=== PATIENT | male | born 1970 | race Caucasian/White ===

== ENCOUNTER 2022-02-09 17:03 | Inpatient (IN) | payer MEDICAID, SELFPAY ==
--- NOTE | ~2022-02-09 | XR_ITS ---
EXAMINATION: XR CHEST CLINICAL INFORMATION: Placement of hemodialysis catheter COMPARISON: January 26, 2015 TECHNIQUE: AP portable view of the chest was obtained. FINDINGS: There is no evidence of acute parenchymal disease, pneumothorax, or pleural effusion. Heart normal size. No evidence of pulmonary edema. A left-sided internal jugular central venous catheter is seen in place with its tip in the region of the junctions of the left innominate vein and superior vena cava. A left sided vascular stent is seen in place. Some calcified lymph nodes are seen about the right mediastinum consistent with old granulomatous disease. XR/XR chest 1V IMPRESSION: No acute disease. Hemodialysis catheter in place with tip at the junctions of the left innominate vein and superior vena cava. No pneumothorax.
--- NOTE | ~2022-02-09 | US_ITS ---
EXAMINATION: US RETROPERITONEAL LIMITED (RENAL ONLY) CLINICAL INFORMATION: Acute kidney injury. COMPARISON: CT abdomen pelvis October 04, 2014 and renal ultrasound April 15, 2014 TECHNIQUE: Grayscale and color Doppler imaging was obtained of the bilateral kidneys. Today's examination is limited secondary to overlying bowel gas and rib shadowing. FINDINGS: RIGHT KIDNEY: 9.3 x 5.0 x 6.0 cm (SAG x AP x TRV). The kidney is normal in size and contour but demonstrates diffusely increased echogenicity. Renal cortical thickness is normal. 2 small subcentimeter cysts noted within the right kidney. An 8mm nonobstructing mid pole calculus is also identified. No hydronephrosis. LEFT KIDNEY: 10.7 x 5.8 x 5.2 cm (SAG x AP x TRV). The kidney is normal in size and contour but demonstrates diffusely increased echogenicity. Renal cortical thickness is normal. No calculi or focal parenchymal lesions. No hydronephrosis. US/US renal BI IMPRESSION: -Both kidneys demonstrate diffusely increased echogenicity suggesting medical renal disease. -8 mm nonobstructing right renal calculus. No hydronephrosis.
--- NOTE | ~2022-02-09 | CT_ITS ---
EXAMINATION: CT HEAD WITHOUT CONTRAST CT CERVICAL SPINE WITHOUT CONTRAST CLINICAL INFORMATION: Syncope, head strike COMPARISON: None TECHNIQUE: A noncontrast CT of the head and a noncontrast CT of the cervical spine with sagittal and coronal reformats. This CT examination was performed using dose optimization techniques as appropriate, variously including the following: *Automated exposure control *Adjustment of mA and/or kV according to patient size (this includes techniques or standardized protocols for targeted exams where dose is matched to indication/reason for exam; i.e. extremities or head) *Use of iterative reconstruction technique DLP: 1170 FINDINGS: No intra-axial or extra-axial hemorrhage. No acute territorial infarct. Ventricles and sulci appear normal. Preservation of wall-white matter differentiation. No mass, mass effect, or midline shift. No fracture. Mild patchy opacification of the right maxillary sinus. The mastoid air cells and visualized paranasal sinuses are otherwise clear. Normal alignment of the cervical spine. No fracture. No prevertebral soft tissue swelling. Moderate-severe degenerative disc disease at C5-C6 and prominent degenerative change at the anterior atlantoaxial junction. Multiple calcified lymph nodes. CT/CT cervical spine wo con IMPRESSION: No acute intracranial abnormality. No cervical spine fracture or traumatic subluxation.
--- NOTE | ~2022-02-09 | IR_ITS ---
PROCEDURE: IR INSERTION OF TUNNEL CATHETER CLINICAL INFORMATION: Conversion of temporary dialysis catheter to a permacath. Acute kidney injury. COMPARISON: Chest x-ray 02/10/2022. TECHNIQUE: Following explaining conversion of left temporary dialysis catheter to a tunneled permacath procedure, benefits and risks, a written consent was obtained from the patient. Patient was placed supine on angiography table and the left neck and the chest wall site was cleaned in usual sterile manner with 2 chlorhexidine solution. Sterile drape was placed over the operating site. 1% lidocaine was injected left anterior chest wall approximately 1 gauze length away from the neck wall incision. 1% lidocaine with epinephrine was injected subcutaneously from the left anterior chest wall incision to the left jugular neck incision. The tunneler was then pulled through the left neck incision making sure the cuff of the catheter was inside the skin. At the neck, the sutures were removed and a thin guidewire was advanced through one of the lumens of the dialysis catheter into the IVC under fluoroscopic guidance. The catheter was then removed and a tract was dilated up to 14-Namibian size. A 14-Namibian dilator with sheath was inserted over the guidewire and the dilator and the guidewire was removed. The catheter was then inserted through the peel-away sheath into the SVC and a peel-away sheath was removed. A single image was obtained for documentation. Both ports of permacatheter were flushed with saline followed by heparin instillation. The permacatheter was held at the skin site with 3-0 nonabsorbing sutures. Sterile dressing applied postprocedure. Conscious sedation was administered during the exam. Sterile gloves, a sterile full body drape and hand hygiene. Also followed skin preparation with 2% chlorhexidine for cutaneous antisepsis, and sterile ultrasound preparation with sterile gel and probe cover when applicable. FINDINGS: Fluoroscopy-guided conversion of left temporary dialysis catheter to a tunneled permacatheter under fluoroscopy. There were no immediate complications. IR/IR cvc insert central tunnel IMPRESSION: Successful conversion of left temporary dialysis catheter to a tunneled 14-Namibian 23 cm long glide permacatheter. FLUOROSCOPY TIME: 0.3 minutes. DOSE AREA PRODUCT: 79 cGy/cm2. SEDATION TIME: 17 minutes.
--- NOTE | ~2022-02-09 | CT_ITS ---
EXAMINATION: CT HEAD WITHOUT CONTRAST CT CERVICAL SPINE WITHOUT CONTRAST CLINICAL INFORMATION: Syncope, head strike COMPARISON: None TECHNIQUE: A noncontrast CT of the head and a noncontrast CT of the cervical spine with sagittal and coronal reformats. This CT examination was performed using dose optimization techniques as appropriate, variously including the following: *Automated exposure control *Adjustment of mA and/or kV according to patient size (this includes techniques or standardized protocols for targeted exams where dose is matched to indication/reason for exam; i.e. extremities or head) *Use of iterative reconstruction technique DLP: 1170 FINDINGS: No intra-axial or extra-axial hemorrhage. No acute territorial infarct. Ventricles and sulci appear normal. Preservation of wall-white matter differentiation. No mass, mass effect, or midline shift. No fracture. Mild patchy opacification of the right maxillary sinus. The mastoid air cells and visualized paranasal sinuses are otherwise clear. Normal alignment of the cervical spine. No fracture. No prevertebral soft tissue swelling. Moderate-severe degenerative disc disease at C5-C6 and prominent degenerative change at the anterior atlantoaxial junction. Multiple calcified lymph nodes. CT/CT head/brain wo con IMPRESSION: No acute intracranial abnormality. No cervical spine fracture or traumatic subluxation.
--- NOTE | 2022-02-09 17:05 | ECG_ITS ---
Test Reason : SYNCOPE Blood Pressure : / mmHG Vent. Rate : 088 BPM Atrial Rate : 088 BPM P-R Int : 148 ms QRS Dur : 104 ms QT Int : 404 ms P-R-T Axes : 035 -01 039 degrees QTc Int : 488 ms Normal sinus rhythm Prolonged QT Abnormal ECG When compared with ECG of 26-JAN-2015 00:36, No significant change was found Referred By: Sharath Chahal Electronically Signed By:SYDNEY IRVIN MD
[2022-02-09 17:14] VITALS: BP 119/52; BP 122/58; PULSE 91; PULSE 93; RESP 18; TEMP 36.6; O2SAT 95; O2SAT 97; BMI 29.9
--- NOTE | 2022-02-09 17:21 | ED_ITS ---
HPI - Syncope General Chief Complaint: Syncope Stated Complaint: syncope Time Seen by Provider: 02/09/22 17:05 Source: patient Mode of arrival: EMS Limitations: no limitations History of Present Illness HPI narrative: This is a 51-year-old male history of CKD was on hemodialysis however no longer on it presenting to the emergency department for witnessed syncopal episode that occurred just prior to his arrival. According to patient he syncopized at his girlfriend's house he tells me he lost consciousness for 5-15 minutes he is on shore he is unsure if he hit his head however he tells me I do not think so. He tells me he is not on blood thinners. He reported to nursing staff earlier that he had a syncopal episode yesterday. He reports that he has not been feeling right. Denies any preceding symptoms to the syncopal episode he tells me this to suddenly happened. Denies head trauma. He does report that he has not been seeing his outpatient providers for a few years, he tells me he does having got into it. At this time he tells me he just feels weak, throughout his body. At this time denies fevers, chills, chest pain, shortness of breath, nausea, vomiting, headache, dizziness, recent sick contacts year old MD complaint: loss of consciousness and felt faint Related Data Allergies Allergy/AdvReac Type Severity Reaction Status Date / Time No Known Allergies Allergy Unverified 03/23/20 17:04 Review of Systems Review of Systems: Constitutional : No Weight loss, No Fever, No Chills, No Fatigue, No Malaise ENT/Mouth : No sore throat, No Rhinorrhea Eyes: No Eye Pain, No Swelling, No Redness Cardiovascular : No Chest Pain, No SOB, No Dyspnea on Exertion, No Orthopnea, No Edema, No Palpitations Respiratory : No Cough, No Sputum, No Wheezing Gastrointestinal : No Nausea, No Vomiting, No Diarrhea, No Constipation, No abdominal Pain, No Hematochezia, No Melena Genitourinary : No Dysuria, No Urinary Frequency, No Hematuria, Musculoskeletal : No joint pain, No Myalgias, No Joint Swelling Skin : No Skin Lesions, No rash Neuro : + Weakness, No Numbness, No Dizziness, No Headache Psych : No Anxiety/Panic, No Depression All other systems reviewed and are negative Yes all other systems are reviewed and are negative PMFSH Past Medical History Attestation statement: The following information was validated with the patient. Source: old records reviewed and nursing notes reviewed Social History Social History Advance Directives: No Advance Directives Information Provided: Yes Physical Exam Vital Signs: Vital Signs: Last Vital Signs Temp 97.8 F 02/09/22 17:14 Pulse 91 02/09/22 17:14 Resp 18 02/09/22 17:14 BP 122/58 L 02/09/22 17:14 Pulse Ox 97 02/09/22 17:14 O2 Del Method 02/09/22 17:14 BMI result Body Mass Index 29.9 VSS Appearance: Alert.? Oriented X3.? No acute distress.? Head: Normocephalic, atraumatic, no step-offs or deformities Eyes: Pupils equal, round and reactive to light.? ENT: Pharynx normal.? Neck: Normal inspection.? Neck supple.? CVS: Normal heart rate and rhythm.? Pulses normal.? Respiratory: No respiratory distress.? Breath sounds normal.? Abdomen: Soft and nontender.? Skin: Skin warm and dry.? Normal skin color.? Normal skin turgor.? Extremities: No lower extremity edema.? No calf ttp. 5/5 strength to bilateral upper and lower extremities Neuro: Oriented X 3.? No motor deficit.? No sensory deficit. CN 2-12 intact Course Reevaluation(s) Reevaluation #1: Patient's CBC significant for a normocytic anemia however patient's baseline hemoglobin around 14, hematocrit around 43 today his hemoglobin is 7.4, hematocrit 21.3, significant change therefore will obtain an OBS to rule out lower GI bleed, however likley secondary to CKD and poor EPO production, will obtain a type and screen as patient is symptomatic had a syncopal episode and is found to be anemic will plan on blood transfusion. Patient's sodium 130 will hydrate him with normal saline, potassium of 3.0 he will receive oral potassium. Patient's chloride is also low. He has an anion gap of 36. Will obtain a VBG at this time. BUN pending however creatinine 17.89 patient does tell me that he used to be on dialysis however he stop seeing all his providers and he stop taking care of himself. At this time patient tells me he still makes urine will give fluids and it plan to reach out to Nephrology for further guidance. Time: 18:23 Reevaluation #2: OBS done and pending analysis. Time: 18:29 Reevaluation #3: Call out to Nephrology, pending call back. Time: 18:40 Additional Reevaluation(s): 1852 UA likley contaminated. Spoke to nephro Dr. Lovett, patient will need dialysis on Friday. Nephro will follow tomorrow. Plan is to discuss this case w/ hospitalist for admission 1928 Patient will be admitted to hospitalist team MDM - Syncope MDM Narrative Medical decision making narrative: 1714 51 yo m presents w/ whitnessed syncopal episode. Patient reports he isnt being followed by out patient providers at this time, he reports he has not been taking care of himself. He also reports a syncopal episode yesterday. Physical examination benign. Will obtain head CT as patient is poor historian will rule out ICH. Will also rule out electrolyte abnormalities with EKG and continuous cardiac monitoring. Basic labs will be obtained to rule out electrolyte abnormalities. And urine will be obtained to rule out infection. Patient has good deep tendon reflexes to upper and lower extremities therefore low suspicion for Guillain-Garrett. Medical Records Attestation: I reviewed the patient's medical records. Lab Data Attestation: I reviewed the patient's lab results. Result diagrams: 02/09/22 17:40 02/09/22 17:40 Labs: Lab Results 02/09/22 02/09/22 02/09/22 Range/Units 17:40 17:40 17:40 WBC 10.9 H (4.8-10.8) X10*3/uL RBC 2.55 L (4.60-5.80) X10*6/uL Hgb 7.4 L (14.0-18.0) g/dl Hct 21.3 L (42.0-52.0) % MCV 83.5 (80.0-98.0) fL MCH 29.0 (27.0-33.0) pg MCHC 34.7 (31.0-36.0) g/dl RDW 13.1 (11.0-16.0) % Plt Count 264 (160-400) X10*3/uL MPV 10.4 (9.4-12.4) fL Immature Gran % (Auto) 0.6 H (0.0-0.4) % Neut % (Auto) 89.1 H (45-73) % Lymph % (Auto) 3.9 L (20-40) % [place] % (Auto) 4.6 (2-11) % Eos % (Auto) 1.3 (0-4) % Baso % (Auto) 0.5 (0-2) % Lymph # (Auto) 0.4 L (1.2-4.9) X10*3/uL [place] # (Auto) 0.5 (0.1-1.2) X10*3/uL Eos # (Auto) 0.1 (0.0-0.4) X10*3/uL Baso # (Auto) 0.1 (0.0-0.2) X10*3/uL Abs Immat Gran (auto) 0.07 H (0.00-0.03) X10*3/uL Absolute Neuts (auto) 9.7 H (2.0-8.3) x10*3/uL Absolute Nucleated RBC 0.000 (0.0-0.012) X10*3/uL Nucleated RBC % (auto) 0.0 (0.0-0.2) /100WBC Sodium 130 L (135-145) mmol/L Potassium 3.0 L (3.3-5.1) mmol/L Chloride 83 L (96-108) mmol/L Carbon Dioxide 14 L (22-29) mmol/L Anion Gap 36 H (12-20) BUN 210 H (9-16) mg/dL Creatinine 17.89 H* (0.5-1.4) mg/dL Estim Creat Clear Calc 5.7 Estimated GFR 3 Random Glucose 170 H (60-115) mg/dL Calcium 8.0 L (8.4-10.2) mg/dL Magnesium 1.7 (1.6-2.6) mg/dL Total Bilirubin 0.7 (0.0-1.0) mg/dL AST 13 (5-37) U/L ALT 9 (0-40) U/L Alkaline Phosphatase 72 (39-117) U/L Total Creatine Kinase 134 (38-174) U/L Troponin I High Sens 11.9 (<3.5-35.0) ng/L Total Protein 8.0 (6.5-8.0) g/dL Albumin 3.8 (3.5-5.0) g/dL Urine Color Urine Appearance Urine pH (5.0-8.0) Ur Specific [place] (1.005-1.025) Urine Protein (NEG-TRACE) MG/DL Urine Glucose (UA) (NEG) MG/DL Urine Ketones (NEG) MG/DL Urine Blood (NEG) Urine Nitrite (NEG) Ur Leukocyte Esterase (NEG) Urine RBC (0) /HPF Urine WBC (0-4) /HPF Urine WBC Clumps Ur Squamous Epith Cells /LPF Urine Bacteria /LPF Stool Occult Blood (NEGATIVE) Urine Opiates Screen (Not Detect) Urine Fentanyl Screen (Not Detect) Ur Barbiturates Screen (Not Detect) Ur Phencyclidine Scrn (Not Detect) Ur Amphetamines Screen (Not Detect) U Benzodiazepines Scrn (Not Detect) Urine Cocaine Screen (Not Detect) U Marijuana (THC) Screen (Not Detect) COVID-19 (BALJEET) (Negative) COVID-19 Clin Com 02/09/22 02/09/22 02/09/22 Range/Units 17:40 17:55 17:55 WBC (4.8-10.8) X10*3/uL RBC (4.60-5.80) X10*6/uL Hgb (14.0-18.0) g/dl Hct (42.0-52.0) % MCV (80.0-98.0) fL MCH (27.0-33.0) pg MCHC (31.0-36.0) g/dl RDW (11.0-16.0) % Plt Count (160-400) X10*3/uL MPV (9.4-12.4) fL Immature Gran % (Auto) (0.0-0.4) % Neut % (Auto) (45-73) % Lymph % (Auto) (20-40) % [place] % (Auto) (2-11) % Eos % (Auto) (0-4) % Baso % (Auto) (0-2) % Lymph # (Auto) (1.2-4.9) X10*3/uL [place] # (Auto) (0.1-1.2) X10*3/uL Eos # (Auto) (0.0-0.4) X10*3/uL Baso # (Auto) (0.0-0.2) X10*3/uL Abs Immat Gran (auto) (0.00-0.03) X10*3/uL Absolute Neuts (auto) (2.0-8.3) x10*3/uL Absolute Nucleated RBC (0.0-0.012) X10*3/uL Nucleated RBC % (auto) (0.0-0.2) /100WBC Sodium (135-145) mmol/L Potassium (3.3-5.1) mmol/L Chloride (96-108) mmol/L Carbon Dioxide (22-29) mmol/L Anion Gap (12-20) BUN (9-16) mg/dL Creatinine (0.5-1.4) mg/dL Estim Creat Clear Calc Estimated GFR Random Glucose (60-115) mg/dL Calcium (8.4-10.2) mg/dL Magnesium (1.6-2.6) mg/dL Total Bilirubin (0.0-1.0) mg/dL AST (5-37) U/L ALT (0-40) U/L Alkaline Phosphatase (39-117) U/L Total Creatine Kinase (38-174) U/L Troponin I High Sens (<3.5-35.0) ng/L Total Protein (6.5-8.0) g/dL Albumin (3.5-5.0) g/dL Urine Color YELLOW Urine Appearance CLEAR Urine pH 5.5 (5.0-8.0) Ur Specific [place] 1.020 (1.005-1.025) Urine Protein 1+ H (NEG-TRACE) MG/DL Urine Glucose (UA) 100 H (NEG) MG/DL Urine Ketones NEG (NEG) MG/DL Urine Blood 2+ H (NEG) Urine Nitrite NEG (NEG) Ur Leukocyte Esterase TRACE H (NEG) Urine RBC 1-4 (0) /HPF Urine WBC 5-9 H (0-4) /HPF Urine WBC Clumps NOTED Ur Squamous Epith Cells 2+ /LPF Urine Bacteria TRACE /LPF Stool Occult Blood (NEGATIVE) Urine Opiates Screen POSITIVE H (Not Detect) Urine Fentanyl Screen POSITIVE H (Not Detect) Ur Barbiturates Screen Not Detected (Not Detect) Ur Phencyclidine Scrn Not Detected (Not Detect) Ur Amphetamines Screen Not Detected (Not Detect) U Benzodiazepines Scrn Not Detected (Not Detect) Urine Cocaine Screen Not Detected (Not Detect) U Marijuana (THC) Screen Not Detected (Not Detect) COVID-19 (BALJEET) Negative (Negative) COVID-19 Clin Com See Note 02/09/22 Range/Units 18:42 WBC (4.8-10.8) X10*3/uL RBC (4.60-5.80) X10*6/uL Hgb (14.0-18.0) g/dl Hct (42.0-52.0) % MCV (80.0-98.0) fL MCH (27.0-33.0) pg MCHC (31.0-36.0) g/dl RDW (11.0-16.0) % Plt Count (160-400) X10*3/uL MPV (9.4-12.4) fL Immature Gran % (Auto) (0.0-0.4) % Neut % (Auto) (45-73) % Lymph % (Auto) (20-40) % [place] % (Auto) (2-11) % Eos % (Auto) (0-4) % Baso % (Auto) (0-2) % Lymph # (Auto) (1.2-4.9) X10*3/uL [place] # (Auto) (0.1-1.2) X10*3/uL Eos # (Auto) (0.0-0.4) X10*3/uL Baso # (Auto) (0.0-0.2) X10*3/uL Abs Immat Gran (auto) (0.00-0.03) X10*3/uL Absolute Neuts (auto) (2.0-8.3) x10*3/uL Absolute Nucleated RBC (0.0-0.012) X10*3/uL Nucleated RBC % (auto) (0.0-0.2) /100WBC Sodium (135-145) mmol/L Potassium (3.3-5.1) mmol/L Chloride (96-108) mmol/L Carbon Dioxide (22-29) mmol/L Anion Gap (12-20) BUN (9-16) mg/dL Creatinine (0.5-1.4) mg/dL Estim Creat Clear Calc Estimated GFR Random Glucose (60-115) mg/dL Calcium (8.4-10.2) mg/dL Magnesium (1.6-2.6) mg/dL Total Bilirubin (0.0-1.0) mg/dL AST (5-37) U/L ALT (0-40) U/L Alkaline Phosphatase (39-117) U/L Total Creatine Kinase (38-174) U/L Troponin I High Sens (<3.5-35.0) ng/L Total Protein (6.5-8.0) g/dL Albumin (3.5-5.0) g/dL Urine Color Urine Appearance Urine pH (5.0-8.0) Ur Specific [place] (1.005-1.025) Urine Protein (NEG-TRACE) MG/DL Urine Glucose (UA) (NEG) MG/DL Urine Ketones (NEG) MG/DL Urine Blood (NEG) Urine Nitrite (NEG) Ur Leukocyte Esterase (NEG) Urine RBC (0) /HPF Urine WBC (0-4) /HPF Urine WBC Clumps Ur Squamous Epith Cells /LPF Urine Bacteria /LPF Stool Occult Blood NEGATIVE (NEGATIVE) Urine Opiates Screen (Not Detect) Urine Fentanyl Screen (Not Detect) Ur Barbiturates Screen (Not Detect) Ur Phencyclidine Scrn (Not Detect) Ur Amphetamines Screen (Not Detect) U Benzodiazepines Scrn (Not Detect) Urine Cocaine Screen (Not Detect) U Marijuana (THC) Screen (Not Detect) COVID-19 (BALJEET) (Negative) COVID-19 Clin Com ECG Data Attestation: I personally reviewed and interpreted this ECG as follows: ECG interpretation date: 02/09/22 ECG interpretation time: 18:23 Prior ECG tracings: available for review Interpretation: EKG with a ventricular rate of 88, IA normal, QRS normal, QT prolonged EKG with normal sinus rhythm no ST elevations or inversions concerning for ischemia. No significant changes when compared to EKG from January 2015 Critical Care Time Critical Care Time Critical Care Time: No Discharge Plan Discharge Clinical Impression: [id number] kidney injury, Syncope, Acute hypokalemia Patient Disposition: Admitted As Inpatient
[2022-02-09 17:47] LABS: MANUAL DIFF FLAG NO
[2022-02-09 17:52] LABS: Basophils Absolute Auto 0.1 X10*3/uL (0.0-0.2); Basophils Percent Auto 0.5 % (0-2); Eosinophils Absolute Auto 0.1 X10*3/uL (0.0-0.4); Eosinophils Percent Auto 1.3 % (0-4); Hematocrit 21.3 % (42.0-52.0); Hemoglobin 7.4 g/dl (14.0-18.0); Imm Gran Abs Auto 0.07 X10*3/uL (0.00-0.03); Imm Gran Pct Auto 0.6 % (0.0-0.4); Lymphocytes Absolute Auto 0.4 X10*3/uL (1.2-4.9); Lymphocytes Percent Auto 3.9 % (20-40); Mean Corpuscular HGB Conc 34.7 g/dl (31.0-36.0); Mean Corpuscular Volume 83.5 fL (80.0-98.0); Mean Platelet Volume 10.4 fL (9.4-12.4); Monocytes Absolute Auto 0.5 X10*3/uL (0.1-1.2); Monocytes Percent Auto 4.6 % (2-11); Neutrophils Absolute Auto 9.7 x10*3/uL (2.0-8.3); Neutrophils Percent Auto 89.1 % (45-73); Platelet Count 264 X10*3/uL (160-400); Red Blood Count 2.55 X10*6/uL (4.60-5.80); Red Cell Distribution Width 13.1 % (11.0-16.0); White Blood Count 10.9 X10*3/uL (4.8-10.8)
[2022-02-09 18:01] LABS: Appearance Urine CLEAR; Color Urine YELLOW; Glucose Urine UA 100 MG/DL (NEG); Leukocyte Esterase Urine TRACE (NEG); Nitrite Urine NEG (NEG); PH 5.5 (5.0-8.0); UACC Culture Trigger NO; Urine Blood 2+ (NEG); Urine Ketones NEG (NEG); Urine Protein 1+ MG/DL (NEG-TRACE)
[2022-02-09 18:02] LABS: COVID-19 Test Negative (Negative)
[2022-02-09 18:12] LABS: Amphetamine Screen Urine Not Detected (Not Detect); Barbiturates, Urine Not Detected (Not Detect); Benzodiazepines Screen Urine Not Detected (Not Detect); Cannabinoid Screen Urine Not Detected (Not Detect); Cocaine Screen Urine Not Detected (Not Detect); Fentanyl, urine POSITIVE (Not Detect); Opiate Screen Urine POSITIVE (Not Detect); Phencyclidine Screen Urine Not Detected (Not Detect)
[2022-02-09 18:13] LABS: Troponin-I High Sensitivity 11.9 ng/L (<3.5-35.0)
[2022-02-09 18:14] LABS: Alanine Aminotransferase 9 U/L (0-40); Albumin Level 3.8 g/dL (3.5-5.0); Alkaline Phosphatase 72 U/L (39-117); Anion Gap 36 (12-20); Aspartate Amino Transferase 13 U/L (5-37); Bilirubin Total 0.7 mg/dL (0.0-1.0); Carbon Dioxide 14 mmol/L (22-29); Chloride 83 mmol/L (96-108); Creatinine Clr Calc Pharmacy 5.7; Estimated Glomerular Filt Rate 3; Glucose Random 170 mg/dL (60-115); Magnesium 1.7 mg/dL (1.6-2.6); Sodium 130 mmol/L (135-145)
[2022-02-09 18:18] LABS: Bacteria Urine TRACE /LPF; Squamous Epithelial Cell Urine 2+ /LPF; UACC CULT YES; WBC Clumps Urine NOTED
[2022-02-09 18:32] LABS: Blood Urea Nitrogen 210 mg/dL (9-16)
[2022-02-09] MEDS: Potassium Chloride Packet 20 MEQ PACKET 40 MEQ PO (18:47)
[2022-02-09 18:49] LABS: OBS Int Ctl Valid YES; OBS1 NEGATIVE (NEGATIVE)
[2022-02-09 19:04] VITALS: BP 120/72; PULSE 108
[2022-02-09 19:30] VITALS: PULSE 80; RESP 12; O2SAT 98; O2SAT 99
--- NOTE | 2022-02-09 19:32 | P.HPHOSP_ITS ---
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 Patient reports that over the past few days he has been having intermittent episodes of syncope, denies any prodrome, denies any seizure-like activity, denies any chest pain palpitations. Patient denies any fever chills cough. Denies any recent travel or sick contacts. Review of all other systems is negative except mentioned above ER course: Per ER team patient's exam was nonfocal, CT head, CT C-spine showed no acute findings, EKG was nonischemic, troponin was negative. All labs noted to have elevated creatinine to 17 compared to baseline of 4; serum bicarb of 14; discussed with Dr. Lovett from Nephrology-no urgent dialysis recommended; plan for dialysis on Friday. Also noted to have drop in hemoglobin from 14-7.4; presumed to be anemia of chronic disease. Stool guaiac was negative. Admitted to the hospital for further management PMFSH Pertinent family history: Father: Kidney failure, diabetes, hypertension, heart disease, CVA Mother: Rheumatoid arthritis, hypertension, heart disease Parents Social History Patient Tobacco Use Status: Current everyday Tobacco user Use of substances other than those prescribed or required for medical reasons: Yes Substance Use Type: Heroin Advance Directives: No Advance Directives Information Provided: Yes Meds Allergies Allergy/AdvReac Type Severity Reaction Status Date / Time No Known Allergies Allergy Unverified 03/23/20 17:04 Active Medications: Current Medications Sodium Chloride (Ns) 1,000 mls @ 999 mls/hr IV .Q1H1M NORMA Stop: 02/09/22 20:00 Physical Exam Vital Signs and Narrative: Vital Signs: Last Vital Signs Temp 97.8 F 02/09/22 17:14 Pulse 91 02/09/22 17:14 Resp 18 02/09/22 17:14 BP 122/58 L 02/09/22 17:14 Pulse Ox 97 02/09/22 17:14 O2 Del Method 02/09/22 17:14 BMI result Body Mass Index 29.9 Gen: Appears be in no acute distress HEENT: NCAT, Moist mucosa. Pulmonary: Vesicular breath sounds, fair air entry CVS: Normal S1-S2 Abdomen: BS+, Soft, Nontender Extremities: Warm well perfused Neuro: Alert and awake. Results Labs CBC and Chem 7: 02/09/22 17:40 02/09/22 17:40 Labs: Laboratory Results - last 24 hr 02/09/22 02/09/22 02/09/22 17:40 17:40 17:40 MCV 83.5 MCH 29.0 MCHC 34.7 RDW 13.1 Plt Count 264 MPV 10.4 Immature Gran % (Auto) 0.6 H Neut % (Auto) 89.1 H Lymph % (Auto) 3.9 L [place] % (Auto) 4.6 Eos % (Auto) 1.3 Baso % (Auto) 0.5 Lymph # (Auto) 0.4 L [place] # (Auto) 0.5 Eos # (Auto) 0.1 Baso # (Auto) 0.1 Abs Immat Gran (auto) 0.07 H Absolute Neuts (auto) 9.7 H Absolute Nucleated RBC 0.000 Nucleated RBC % (auto) 0.0 Anion Gap 36 H Estim Creat Clear Calc 5.7 Estimated GFR 3 Random Glucose 170 H Calcium 8.0 L Magnesium 1.7 Total Bilirubin 0.7 AST 13 ALT 9 Alkaline Phosphatase 72 Total Creatine Kinase 134 Total Protein 8.0 Albumin 3.8 Urine Color Urine Appearance Urine pH Ur Specific [place] Urine Protein Urine Glucose (UA) Urine Ketones Urine Blood Urine Nitrite Ur Leukocyte Esterase Urine RBC Urine WBC Urine WBC Clumps Ur Squamous Epith Cells Urine Bacteria Stool Occult Blood Urine Opiates Screen Urine Fentanyl Screen Ur Barbiturates Screen Ur Phencyclidine Scrn Ur Amphetamines Screen U Benzodiazepines Scrn Urine Cocaine Screen U Marijuana (THC) Screen COVID-19 (BALJEET) Negative COVID-19 Clin Com See Note 02/09/22 02/09/22 02/09/22 17:55 17:55 18:42 MCV MCH MCHC RDW Plt Count MPV Immature Gran % (Auto) Neut % (Auto) Lymph % (Auto) [place] % (Auto) Eos % (Auto) Baso % (Auto) Lymph # (Auto) [place] # (Auto) Eos # (Auto) Baso # (Auto) Abs Immat Gran (auto) Absolute Neuts (auto) Absolute Nucleated RBC Nucleated RBC % (auto) Anion Gap Estim Creat Clear Calc Estimated GFR Random Glucose Calcium Magnesium Total Bilirubin AST ALT Alkaline Phosphatase Total Creatine Kinase Total Protein Albumin Urine Color YELLOW Urine Appearance CLEAR Urine pH 5.5 Ur Specific [place] 1.020 Urine Protein 1+ H Urine Glucose (UA) 100 H Urine Ketones NEG Urine Blood 2+ H Urine Nitrite NEG Ur Leukocyte Esterase TRACE H Urine RBC 1-4 Urine WBC 5-9 H Urine WBC Clumps NOTED Ur Squamous Epith Cells 2+ Urine Bacteria TRACE Stool Occult Blood NEGATIVE Urine Opiates Screen POSITIVE H Urine Fentanyl Screen POSITIVE H Ur Barbiturates Screen Not Detected Ur Phencyclidine Scrn Not Detected Ur Amphetamines Screen Not Detected U Benzodiazepines Scrn Not Detected Urine Cocaine Screen Not Detected U Marijuana (THC) Screen Not Detected COVID-19 (BALJEET) COVID-19 Clin Com Imaging Radiologist's Impressions: Impressions Cervical Spine CT 02/09/22 18:33 IMPRESSION: No acute intracranial abnormality. No cervical spine fracture or traumatic subluxation. Head CT 02/09/22 18:33 IMPRESSION: No acute intracranial abnormality. No cervical spine fracture or traumatic subluxation. 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 Noted to have following conditions Syncope: Exam nonfocal CT head, CT C-spine showed no acute findings EKG showed no ischemia, no evidence of bradycardia Orthostatic vitals Telemetry Initial troponin negative-repeat troponin pending Echocardiogram PT/OT eventually LYNDSAY on CKD: Patient baseline creatinine around 4.0 from 2 years ago. No recent values. Creatinine on presentation is 17. Avoid nephrotoxins Patient's serum bicarb noted to be 14-will keep the patient on sodium bicarb tablets Nephrology was notified-no urgent dialysis recommended, planned for hemodialysis possibly on Friday. Gentle IV fluids Strict I's and O's Renal ultrasound Bladder scan High anion gap metabolic acidosis: Lactate levels pending. Ketones negative. Likely in setting of LYNDSAY. Patient on IV fluids. Hypokalemia: repleted. Diabetes: Will obtain hemoglobin A1c. Insulin sliding scale. Hypertension: Patient blood pressure currently on the normal side. Will continue to monitor. History of sarcoidosis: Patient used to be on prednisone 20 mg. Currently medication noncompliant. DVT prophylaxis: Subcu heparin Code status: Full code Quality Stroke Does the patient have a stroke diagnosis?: No VTE Prior VTE?: No VTE Risk Level:: Medical - moderate - high VTE Device Contraindication: Treatment Not Indicated VTE Drug Contraindication: N/A - Med Ordered
--- NOTE | 2022-02-09 19:34 | PC.NURSE ---
IV attempted by 2 RNs. Pt is a hard stick, will attempt with the vein finder.
[2022-02-09] MEDS: 0.9 % Sodium Chloride 1,000 ML 999 ML IV ×2 (20:01→20:50)
[2022-02-09 20:44] LABS: Lactic Acid 0.5 mmol/L (0.5-2.0)
[2022-02-09 20:52] LABS: Anion Gap 34 (12-20); Calcium 8.2 mg/dL (8.4-10.2); Carbon Dioxide 16 mmol/L (22-29); Chloride 84 mmol/L (96-108); Creatinine Clr Calc Pharmacy 5.7; Estimated Glomerular Filt Rate 3; Glucose Random 123 mg/dL (60-115); Potassium 3.2 mmol/L (3.3-5.1); Sodium 131 mmol/L (135-145)
[2022-02-09 21:06] LABS: Blood Urea Nitrogen 208 mg/dL (9-16)
[2022-02-09] MEDS: Heparin Sodium,Porcine 5,000 UNIT/ML VIAL 5000 UNIT SUBCUT (21:22)
[2022-02-09] MEDS: Sodium Bicarbonate 650 MG TABLET PO (21:22)
[2022-02-09 21:27] VITALS: BP 134/82; PULSE 83; RESP 12; O2SAT 97
[2022-02-09 21:34] LABS: Appearance Urine HAZY; Color Urine STRAW; Glucose Urine UA 100 MG/DL (NEG); Leukocyte Esterase Urine 1+ (NEG); Nitrite Urine POS (NEG); Specific Gravity - Urine 1.015 (1.005-1.025); UACC Culture Trigger YES; Urine Blood 3+ (NEG); Urine Ketones NEG (NEG); Urine Protein 1+ MG/DL (NEG-TRACE)
[2022-02-09 21:39] LABS: Bacteria Urine TRACE /LPF; Renal Epithelial Cells Urine 3+ /LPF; Squamous Epithelial Cell Urine 2+ /LPF; WBC Clumps Urine NOTED
[2022-02-09 21:52] VITALS: PULSE 96
[2022-02-10] VITALS (13 sets, daily range): BP systolic 85–153; BP diastolic 42–77; PULSE 81–129; RESP 12–20; TEMP 36.2–37.1; O2SAT 97–100
[2022-02-10] MEDS: Heparin Sodium,Porcine 5,000 UNIT/ML VIAL 5000 UNIT SUBCUT ×3 (04:04→22:06)
[2022-02-10] MEDS: Sodium Chloride 0.45 % 1,000 ML 100 ML IVCONT (06:42)
[2022-02-10 07:09] LABS: Estimated Average Glucose 111 mg/dL; Hemoglobin A1c % 5.5 %
[2022-02-10 07:24] LABS: Mean Corpuscular Hemoglobin 29.4 pg (27.0-33.0); Mean Corpuscular Volume 83.8 fL (80.0-98.0); Mean Platelet Volume 11.1 fL (9.4-12.4); Platelet Count 266 X10*3/uL (160-400); Red Blood Count 2.35 X10*6/uL (4.60-5.80); Red Cell Distribution Width 13.1 % (11.0-16.0)
[2022-02-10 07:27] LABS: Hemoglobin 6.9 g/dl (14.0-18.0)
[2022-02-10 07:28] LABS: Hematocrit 19.7 % (42.0-52.0)
--- NOTE | 2022-02-10 07:36 | PHA.MEDREC ---
PATIENT HAS NOT BEEN TAKING ANY MEDICATIONS, NO CLAIM HISTORY FOUND FOR PAST YEAR Pharmacy Consult ? Medication Reconciliation Pharmacy has completed the medication reconciliation.
[2022-02-10 07:54] LABS: Anion Gap 33 (12-20); Calcium 8.3 mg/dL (8.4-10.2); Carbon Dioxide 15 mmol/L (22-29); Chloride 86 mmol/L (96-108); Creatinine Clr Calc Pharmacy 5.8; Estimated Glomerular Filt Rate 3; Glucose Random 114 mg/dL (60-115); Potassium 3.4 mmol/L (3.3-5.1); Sodium 131 mmol/L (135-145)
[2022-02-10] MEDS: Sodium Bicarbonate 8.4% 150 MEQ in Dextrose 5 % 850 ML 100 MEQ IV (08:11)
[2022-02-10 08:19] LABS: Blood Urea Nitrogen 217 mg/dL (9-16)
--- NOTE | 2022-02-10 10:45 | P.PNIM_ITS ---
Subjective Subjective Date of Service: 02/10/22 Interval History: cc: weakness interval history: improved Respiratory Respiratory: Reports no additional respiratory complaints Gastrointestinal Gastrointestinal: Reports no additional gastrointestinal complaints Physical Exam Vital Signs: Vital Signs: Last Vital Signs Temp 97.8 F 02/09/22 17:14 Pulse 90 02/10/22 05:20 Resp 16 02/10/22 05:20 BP 98/60 02/10/22 05:23 Pulse Ox 98 02/10/22 05:20 O2 Del Method 02/10/22 05:20 BMI result Body Mass Index 29.9 Appearance: Alert.? Oriented X3.? No acute distress.? Head: Normocephalic, atraumatic, no step-offs or deformities Eyes: Pupils equal, round and reactive to light.? ENT: Pharynx normal.? Neck: Normal inspection.? Neck supple.? CVS: Normal heart rate and rhythm.? Pulses normal.? Respiratory: No respiratory distress.? Breath sounds normal.? Abdomen: Soft and nontender.? Skin: Skin warm and dry.? Normal skin color.? Normal skin turgor.? Extremities: No lower extremity edema.? No calf ttp. 5/5 strength to bilateral upper and lower extremities Neuro: Oriented X 3.? No motor deficit.? No sensory deficit. CN 2-12 intact Objective Data Active Medications Acetaminophen (Acetaminophen 325 Mg Tablet) 650 mg PO Q6H PRN PRN Reason: Pain, Mild (Pain Scale 1-3) Dextrose (Dextrose 50 % 25 Gm/50 Ml Syringe) 25 gm IVPUSH Q15M PRN; Protocol PRN Reason: per Hypoglycemia Standing Ord. Glucose (Glucose Gel 15 Gm Gel..Gram.) 15 gm PO Q15M PRN; Protocol PRN Reason: per Hypoglycemia Standing Ord. Heparin Sodium (Porcine) (Heparin Sodium,Porcine 5,000 Unit/Ml Vial) 5,000 unit SUBCUT Q8H [facility] Last Admin: 02/10/22 04:04 Dose: 5,000 unit Documented By: VIDHI Hydromorphone HCl (Hydromorphone Hcl 0.5 Mg/0.5 Ml Syringe) 0.5 mg IVPUSH Q4H PRN; Protocol PRN Reason: Pain, Severe (Pain Scale 7-10) Sodium Bicarbonate 150 meq/ (Dextrose) 1,000 mls @ 100 mls/hr IV .Q10H [facility] Last Admin: 02/10/22 08:11 Dose: 100 mls/hr Documented By: ORTIZ Insulin Human Lispro (Insulin Lispro 100 Unit/Ml 3 Ml Vial) 0 unit SUBCUT QIDACHS [facility]; Protocol Last Admin: 02/10/22 08:12 Dose: Not Given Documented By: ORTIZ Non-Admin Reason: No Insulin Coverage Senna (Sennosides 8.6 Mg Tablet) 17.2 mg PO BEDTIME PRN PRN Reason: Constipation Sodium Chloride (0.9 % Sodium Chloride Flush 3 Ml Syringe) 3 ml IVFLUSH QSHIFT [facility] Last Admin: 02/10/22 08:12 Dose: Not Given Documented By: ORTIZ Non-Admin Reason: IV Running Labs CBC & Chem 7: 02/10/22 06:42 02/10/22 06:42 Labs: Laboratory Results - last 24 hr 02/09/22 02/09/22 02/09/22 17:40 17:40 17:40 MCV 83.5 MCH 29.0 MCHC 34.7 RDW 13.1 Plt Count 264 MPV 10.4 Immature Gran % (Auto) 0.6 H Neut % (Auto) 89.1 H Lymph % (Auto) 3.9 L [place] % (Auto) 4.6 Eos % (Auto) 1.3 Baso % (Auto) 0.5 Lymph # (Auto) 0.4 L [place] # (Auto) 0.5 Eos # (Auto) 0.1 Baso # (Auto) 0.1 Abs Immat Gran (auto) 0.07 H Absolute Neuts (auto) 9.7 H Absolute Nucleated RBC 0.000 Nucleated RBC % (auto) 0.0 Anion Gap 36 H Estim Creat Clear Calc 5.7 Estimated GFR 3 Random Glucose 170 H Estimat Average Glucose Hemoglobin A1c % Lactic Acid Calcium 8.0 L Magnesium 1.7 Total Bilirubin 0.7 AST 13 ALT 9 Alkaline Phosphatase 72 Total Creatine Kinase 134 Total Protein 8.0 Albumin 3.8 Urine Color Urine Appearance Urine pH Ur Specific [place] Urine Protein Urine Glucose (UA) Urine Ketones Urine Blood Urine Nitrite Ur Leukocyte Esterase Urine RBC Urine WBC Urine WBC Clumps Ur Squamous Epith Cells Ur Renal Epithelial Cell Urine Bacteria Stool Occult Blood Urine Opiates Screen Urine Fentanyl Screen Ur Barbiturates Screen Ur Phencyclidine Scrn Ur Amphetamines Screen U Benzodiazepines Scrn Urine Cocaine Screen U Marijuana (THC) Screen COVID-19 (BALJEET) Negative COVID-19 Clin Com See Note Blood Type Antibody Screen Crossmatch 02/09/22 02/09/22 02/09/22 17:55 17:55 18:42 MCV MCH MCHC RDW Plt Count MPV Immature Gran % (Auto) Neut % (Auto) Lymph % (Auto) [place] % (Auto) Eos % (Auto) Baso % (Auto) Lymph # (Auto) [place] # (Auto) Eos # (Auto) Baso # (Auto) Abs Immat Gran (auto) Absolute Neuts (auto) Absolute Nucleated RBC Nucleated RBC % (auto) Anion Gap Estim Creat Clear Calc Estimated GFR Random Glucose Estimat Average Glucose Hemoglobin A1c % Lactic Acid Calcium Magnesium Total Bilirubin AST ALT Alkaline Phosphatase Total Creatine Kinase Total Protein Albumin Urine Color YELLOW Urine Appearance CLEAR Urine pH 5.5 Ur Specific [place] 1.020 Urine Protein 1+ H Urine Glucose (UA) 100 H Urine Ketones NEG Urine Blood 2+ H Urine Nitrite NEG Ur Leukocyte Esterase TRACE H Urine RBC 1-4 Urine WBC 5-9 H Urine WBC Clumps NOTED Ur Squamous Epith Cells 2+ Ur Renal Epithelial Cell Urine Bacteria TRACE Stool Occult Blood NEGATIVE Urine Opiates Screen POSITIVE H Urine Fentanyl Screen POSITIVE H Ur Barbiturates Screen Not Detected Ur Phencyclidine Scrn Not Detected Ur Amphetamines Screen Not Detected U Benzodiazepines Scrn Not Detected Urine Cocaine Screen Not Detected U Marijuana (THC) Screen Not Detected COVID-19 (BALJEET) COVID-19 Clin Com Blood Type Antibody Screen Crossmatch 02/09/22 02/09/22 02/09/22 20:20 20:20 20:20 MCV MCH MCHC RDW Plt Count MPV Immature Gran % (Auto) Neut % (Auto) Lymph % (Auto) [place] % (Auto) Eos % (Auto) Baso % (Auto) Lymph # (Auto) [place] # (Auto) Eos # (Auto) Baso # (Auto) Abs Immat Gran (auto) Absolute Neuts (auto) Absolute Nucleated RBC Nucleated RBC % (auto) Anion Gap 34 H Estim Creat Clear Calc 5.7 Estimated GFR 3 Random Glucose 123 H Estimat Average Glucose 111 Hemoglobin A1c % 5.5 Lactic Acid Calcium 8.2 L Magnesium Total Bilirubin AST ALT Alkaline Phosphatase Total Creatine Kinase Total Protein Albumin Urine Color Urine Appearance Urine pH Ur Specific [place] Urine Protein Urine Glucose (UA) Urine Ketones Urine Blood Urine Nitrite Ur Leukocyte Esterase Urine RBC Urine WBC Urine WBC Clumps Ur Squamous Epith Cells Ur Renal Epithelial Cell Urine Bacteria Stool Occult Blood Urine Opiates Screen Urine Fentanyl Screen Ur Barbiturates Screen Ur Phencyclidine Scrn Ur Amphetamines Screen U Benzodiazepines Scrn Urine Cocaine Screen U Marijuana (THC) Screen COVID-19 (BALJEET) COVID-19 Clin Com Blood Type O Positive Antibody Screen NEGATIVE Crossmatch See Detail 02/09/22 02/09/22 02/10/22 20:20 21:29 06:42 MCV 83.8 MCH 29.4 MCHC 35.0 RDW 13.1 Plt Count 266 MPV 11.1 Immature Gran % (Auto) Neut % (Auto) Lymph % (Auto) [place] % (Auto) Eos % (Auto) Baso % (Auto) Lymph # (Auto) [place] # (Auto) Eos # (Auto) Baso # (Auto) Abs Immat Gran (auto) Absolute Neuts (auto) Absolute Nucleated RBC 0.000 Nucleated RBC % (auto) 0.0 Anion Gap Estim Creat Clear Calc Estimated GFR Random Glucose Estimat Average Glucose Hemoglobin A1c % Lactic Acid 0.5 Calcium Magnesium Total Bilirubin AST ALT Alkaline Phosphatase Total Creatine Kinase Total Protein Albumin Urine Color STRAW Urine Appearance HAZY Urine pH 6.0 Ur Specific [place] 1.015 Urine Protein 1+ H Urine Glucose (UA) 100 H Urine Ketones NEG Urine Blood 3+ H Urine Nitrite POS H Ur Leukocyte Esterase 1+ H Urine RBC 5-9 H Urine WBC 5-9 H Urine WBC Clumps NOTED Ur Squamous Epith Cells 2+ Ur Renal Epithelial Cell 3+ Urine Bacteria TRACE Stool Occult Blood Urine Opiates Screen Urine Fentanyl Screen Ur Barbiturates Screen Ur Phencyclidine Scrn Ur Amphetamines Screen U Benzodiazepines Scrn Urine Cocaine Screen U Marijuana (THC) Screen COVID-19 (BALJEET) COVID-19 Clin Com Blood Type Antibody Screen Crossmatch 02/10/22 06:42 MCV MCH MCHC RDW Plt Count MPV Immature Gran % (Auto) Neut % (Auto) Lymph % (Auto) [place] % (Auto) Eos % (Auto) Baso % (Auto) Lymph # (Auto) [place] # (Auto) Eos # (Auto) Baso # (Auto) Abs Immat Gran (auto) Absolute Neuts (auto) Absolute Nucleated RBC Nucleated RBC % (auto) Anion Gap 33 H Estim Creat Clear Calc 5.8 Estimated GFR 3 Random Glucose 114 Estimat Average Glucose Hemoglobin A1c % Lactic Acid Calcium 8.3 L Magnesium Total Bilirubin AST ALT Alkaline Phosphatase Total Creatine Kinase Total Protein Albumin Urine Color Urine Appearance Urine pH Ur Specific [place] Urine Protein Urine Glucose (UA) Urine Ketones Urine Blood Urine Nitrite Ur Leukocyte Esterase Urine RBC Urine WBC Urine WBC Clumps Ur Squamous Epith Cells Ur Renal Epithelial Cell Urine Bacteria Stool Occult Blood Urine Opiates Screen Urine Fentanyl Screen Ur Barbiturates Screen Ur Phencyclidine Scrn Ur Amphetamines Screen U Benzodiazepines Scrn Urine Cocaine Screen U Marijuana (THC) Screen COVID-19 (BALJEET) COVID-19 Clin Com Blood Type Antibody Screen Crossmatch Assessment and Plan (1) ESRD (end stage renal disease): Status: Acute Plan 51M pmh [place], ESRD (has not followed with HD for 3 years), presented with w eakness LYNDSAY on CKD V in patient who took self of HD complicated by metabolic encephalopathy and metabolic acidosis plan for temporary cath and HD monitor bmp started iv bicarb anemia due to kidney disease will transfuse 1 unit prbc DM insulin [place] outpatient follow up dvt prophylaxis - hep sq full code reason for continued hospitalization: significnat lyndsay on CKDV requiring restarting HD Quality Stroke Does the patient have a stroke diagnosis?: No VTE Prior VTE?: No VTE Risk Level:: Medical - moderate - high VTE Device Contraindication: Treatment Not Indicated VTE Drug Contraindication: N/A - Med Ordered
[2022-02-10 12:23] LABS: Glucose, Whole Blood 126 mg/dL (60-115)
[2022-02-10] MEDS: fentaNYL citrate/PF 100 MCG/2 ML VIAL 50 MCG IVPUSH (12:36)
--- NOTE | 2022-02-10 12:57 | PM.PROC ---
Brief Operative Note Date of procedure: 02/10/22 Pre-op diagnosis: [id number] renal failure Post-op diagnosis: same Procedure: PROCEDURE: ?Insertion left internal jugular Mahurkar triple lumen temporary hemodialysis catheter. INDICATION:? Acute renal failure. ANESTHESIA:? Local. PROCEDURE:? Vascular ultrasound was used to examine the left neck.? A large compressible internal jugular vein was noted. The left neck was widely prepped and draped in full sterile fashion.? Local anesthesia was applied to the LIJV insertion site.? The left IJ vein was cannulated medially on the 1st pass of the 18 gauge thin wall.? The wire passed easily, followed by the two sequential dilators.? The Mahurkar catheter was threaded without incident.? There was good blood return x3.? The catheter was sutured x2 and a Biopatch and dry sterile dressing were applied. Postop chest x-ray showed the line in good position with no pneumothorax.? The patient tolerated the procedure well w no complications. Anesthesia: local Surgeon: Vinay Kat Disposition: floor
[2022-02-10 13:47] LABS: Glucose, Whole Blood 127 mg/dL (60-115)
[2022-02-10] MEDS: MannitoL 12.5 GM/50 ML VIAL IV (14:52)
[2022-02-10] MEDS: LORazepam 0.5 MG TABLET SUBLINGUAL (16:43)
[2022-02-10] MEDS: 0.9 % Sodium Chloride Flush 3 ML SYRINGE IVFLUSH ×2 (16:43→22:06)
[2022-02-10 16:51] LABS: Glucose, Whole Blood 103 mg/dL (60-115)
--- NOTE | 2022-02-10 19:05 | PM.CNNEP ---
History of Present Illness Reason for Consult Consult date: 02/10/22 Reason for consult: LYNDSAY Chief Complaint Chief complaint: syncope History of Present Illness Narrative: 51-year-old male with past medical history of history of CKD IV/V with multiple LYNDSAY's in the past requiring short term HD, recurrent renal stones, polysubstance abuse, hypertension, depression, anemia and sarcoidosis who presented to ED for witnessed syncopal episode. He lost consciousness for ~ 5-15 minutes per patient's girlfriend. He reports that he has not been feeling right. He adimtted to me not seeing his providers for several years. In the ED, CT head, CT C-spine showed no acute findings, EKG was nonischemic, troponin was negative. Lab assessment revealed elevated creatinine to 17 compared to baseline of 4; serum bicarb of 14; discussed with Also noted to have drop in hemoglobin from 14-7.4; presumed to be anemia of chronic disease. Stool guaiac was negative. Admitted to the hospital for further management ROS otherwise negative. Review of Systems Constitutional: Reports as per [facility] Past Medical History Medical History (Updated 02/10/22 @ 07:16 by Babak Piña MD) ESRD (end stage renal disease) Sarcoidosis Family History Family History (Updated 02/10/22 @ 07:16 by Babak Piña MD) Father Diabetes Social History Social History Household Members: None Housing: Apartment Do you presently have visiting nurse or other home services: No Patient Tobacco Use Status: Current everyday Tobacco user Tobacco use type: Cigarette Cigarette Packs Per Day: 1 Cigarettes Per Day: 20.0 e-Cigarette/Vaping Use: Never Used Substance Use Type: Heroin Meds Allergies Allergy/AdvReac Type Severity Reaction Status Date / Time No Known Allergies Allergy Unverified 03/23/20 17:04 Active Medications: Current Medications Acetaminophen (Acetaminophen 325 Mg Tablet) 650 mg PO Q6H PRN PRN Reason: Pain, Mild (Pain Scale 1-3) Dextrose (Dextrose 50 % 25 Gm/50 Ml Syringe) 25 gm IVPUSH Q15M PRN; Protocol PRN Reason: per Hypoglycemia Standing Ord. Glucose (Glucose Gel 15 Gm Gel..Gram.) 15 gm PO Q15M PRN; Protocol PRN Reason: per Hypoglycemia Standing Ord. Heparin Sodium (Porcine) (Heparin Sodium,Porcine 5,000 Unit/Ml Vial) 5,000 unit SUBCUT Q8H [facility] Last Admin: 02/10/22 13:31 Dose: 5,000 unit Hydromorphone HCl (Hydromorphone Hcl 0.5 Mg/0.5 Ml Syringe) 0.5 mg IVPUSH Q4H PRN; Protocol PRN Reason: Pain, Severe (Pain Scale 7-10) Insulin Human Lispro (Insulin Lispro 100 Unit/Ml 3 Ml Vial) 0 unit SUBCUT QIDACHS [facility]; Protocol Last Admin: 02/10/22 16:47 Dose: Not Given Senna (Sennosides 8.6 Mg Tablet) 17.2 mg PO BEDTIME PRN PRN Reason: Constipation Sodium Chloride (0.9 % Sodium Chloride Flush 3 Ml Syringe) 3 ml IVFLUSH QSHIFT [facility] Last Admin: 02/10/22 16:43 Dose: 3 ml Home Medications Medication Instructions Recorded Confirmed Last Taken Type No Known Home Meds 02/10/22 02/10/22 Unknown History Physical Exam Vital Signs: Last Vital Signs Temp 98.7 F 02/10/22 16:00 Pulse 100 02/10/22 16:00 Resp 15 02/10/22 16:00 BP 118/74 02/10/22 16:00 Pulse Ox 99 02/10/22 16:00 O2 Del Method 02/10/22 16:00 BMI result Body Mass Index 29.9 Const General: no acute distress HEENT Head: Yes normocephalic and Yes atraumatic Neck Neck: Yes no JVD Resp Auscultation: clear to auscultation bilaterally Cardio Jugular venous distension: no JVD Rate: regular rate Rhythm: regular rhythm GI Auscultation: normal bowel sounds Neuro General: moves all extremities Extrem General: Yes no clubbing, cyanosis or edema Results Lab Results Result Diagrams: 02/10/22 06:42 02/10/22 06:42 Lab results: Chemistry 02/09/22 02/09/22 02/10/22 17:40 20:20 06:42 Sodium 130 L 131 L 131 L Potassium 3.0 L 3.2 L 3.4 Carbon Dioxide 14 L 16 L 15 L BUN 210 H 208 H 217 H Creatinine 17.89 H* 17.83 H* 17.74 H* Calcium 8.0 L 8.2 L 8.3 L Hematology 02/09/22 02/10/22 17:40 06:42 WBC 10.9 H 11.0 H Hgb 7.4 L 6.9 L* Plt Count 264 266 Urinalysis 02/09/22 02/09/22 17:55 21:29 Urine Color YELLOW STRAW Urine Appearance CLEAR HAZY Urine pH 5.5 6.0 Ur Specific [place] 1.020 1.015 Urine Protein 1+ H 1+ H Urine Glucose (UA) 100 H 100 H Urine Ketones NEG NEG Urine Blood 2+ H 3+ H Urine Nitrite NEG POS H Ur Leukocyte Esterase TRACE H 1+ H Urine RBC 1-4 5-9 H Urine WBC 5-9 H 5-9 H Ur Squamous Epith Cells 2+ 2+ Assessment and Plan (1) Emsry-vx-xirtocv kidney injury: Status: Acute (2) Acidosis: Status: Acute Plan 51-year-old male with past medical history of history of CKD IV/V with multiple LYNDSAY's in the past requiring short term HD, recurrent renal stones, polysubstance abuse, hypertension, depression, anemia and sarcoidosis who presented to ED for witnessed syncopal episode. He lost consciousness for ~ 5-15 minutes per patient's girlfriend. He reports that he has not been feeling right. He adimtted to me not seeing his providers for several years. In the ED, CT head, CT C-spine showed no acute findings, EKG was nonischemic, troponin was negative. Lab assessment revealed elevated creatinine to 17 compared to baseline of 4; serum bicarb of 14; discussed with Also noted to have drop in hemoglobin from 14-7.4; presumed to be anemia of chronic disease. Stool guaiac was negative. Admitted to the hospital for further management ROS otherwise negative. 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 He has clotted LUE AVF so patietn was transferred to ICU for temp line placement and initiation of HD. [facility] placing access. given his elevated bun/cr, syncopal episode which may be secondary to uremia, and oliguria despite ivf admin in ED, Decision was made to initiate HD today via temp catheter. If no improvement may require permcath for medical terminologist HD Will repeat HD in am and reassess renal fx/uop moving forward for evidence of recovery. hx renal stones. Renal US to rule out obstruction. - no hydronephrosis noted. non-obs stone R kidney check Ca, pth, vitD, vit 1,25 as his sarcoid previously caued hypercalcemia. Hypercalcemia can certainly promote diuresis, htn through vasoconstrictive mechanisms. renal panel daily hold nsaids, acei/arb, IV contrast. Procedures Date of Service Date of Service: 02/10/22
--- NOTE | 2022-02-10 19:41 | PC.NURSE ---
[facility] RN took report on this ICU patient 18:00. ICU nurse notified this RN and MD of sinus tachycardia rate 140. No new orders given.
[2022-02-10] MEDS: LORazepam 1 MG TABLET PO (20:16)
--- NOTE | 2022-02-10 20:51 | PC.NURSE ---
Pt arrived from ICU around 21:35. Zenon RN from ICU reported pt was very agitated and combative. Telling him he needed to seek God. Zenon notified Dr Raymond. I called securities research analyst to the unit (pt Cymro speaking with little Greek). Pt oriented X4. Pleasant and cooperative. Patients girlfriend, Disha by his side. See complete assessment. Pt stating he is hungry and thirsty. Awaiting POC then will get him a snack and drink-pt aware and understands. Bed alarm on for patient safety. Will continue to monitor.
[2022-02-10 21:30] LABS: Glucose, Whole Blood 124 mg/dL (60-115)
[2022-02-10] MEDS: LORazepam 0.5 MG TABLET PO (22:38)
--- NOTE | 2022-02-10 23:49 | PC.NURSE ---
Patient was initially alert and oriented, care assumed around 14:00. Patient came to ICU as C overflow for placement of hemodialysis catheter. Patient also needed a unit of RBCs for which she had not been consented yet. Astronautical Engineer called and patient was consented for both placement of line and for blood transfusion by MD. Patient had HD catheter placed to left jugular by MD, and was administered 50 mcg of IV fentanyl per MD during procedure. He then was somewhat forgetful and having trouble consistently following the doctor's instructions. Patient did tolerate the placement of the HD catheter well. Then he had emergent dialysis, with no volume off, but with ultrafiltration. Patient did have an episode of hypotension and diaphosesis, with unremarkable POC, immediately after starting dialysis, Dr. Kat was notified and in the room to witness the patient as arousable to tactile stimulus, fine tremors to bilateral hands, hypotension. Patient's head was lowered and feet raised with good effect, and dialysis nurse gave two 200 cc boluses, and then the unit of pRBCs was administered with good effect. Patient was placed on 2 LPM nasal cannula related to her anemia, despite SpO2 in mid to high 90's on room air, then 94% on 2 LPM. Patient did endorse dizziness with standing to void in the urinal. He had some difficulty holding still and waiting for dinner during dialysis--POC unremarkable--after assessment by Dr. Kat and conferring with Dr. Piña, 0.5 mg PO ativan was administered x1 with modest good effect. After dialysis, despite having been very hungry and having to wait until the end of dialysis, patient then refused to eat dinner. He declined other options for food. He did successfully void again in the urinal, with noted hesitancy. Patient was then ordered for transfer to [facility], and report was given to CL Linares around 18:20. The patient's CHUTE LOADER came down to transfer the patient just before 20:00, and the patient had a series of outbursts and noncompliance. Initially, he had refused to allow for orthostatic hypotension testing, which had been ordered but not charted. So, upon transferring to the wheelchair, these were measured and apparently positive, with a drop to 80's/60's with standing and dizziness. Patient was safely helped to the wheelchair, and reported needing to void, and said he would do so sitting, but then he stood up, very unsteady, and had to be assisted to the wheelchair. He was--for the second time--very loudly and energetically describing a euphoric sensation of spirituality that was beyond words, per patient. He did endorse wanting to see a inside sales account manager. Unfortunately, patient was not able to transfer immediately and was clamoring and grabbing at staff excitedly and was risking falling. Dr. Choudhury was called and updated, and the sign language interpreter called, and the patient was administered 1 mg of PO ativan per MD with good effect, and patient was brought up to [facility] with JENNIFER and RN and warm handover given to CL Ribeiro, and the interpretter was called to come see patient.
--- NOTE | 2022-02-11 01:16 | PC.NURSE ---
Pt jumped up out of be setting off the bed alarm again (4th time). Pt confused and agitated. Takes several minutes each time to reorient patient and reassure him. Pt back in bed resting with bed alarm back on. Nursing supervisor claims looking for a camera for him (none on IMC or Med/surg available). Will continue to monitor.
--- NOTE | 2022-02-11 02:41 | PC.NURSE ---
Within last hour, patient impulsive, jumping out of bed X3 episodes. Agitated and confused. Difficult to reorient and reassure him he's safe. Last time around 02:30, hourly sign language interpreter called. Before he arrived on unit, pt calmed down and told me he was better. Pt apologized for scaring me (he would raise his hands towards my face while yelling at me). Mixed Signal Design Engineer made sure patient understood everything and was alert and calm prior to leaving. Bed alarm on for safety. Pt unsteady on feet.
--- NOTE | 2022-02-11 03:42 | PC.NURSE ---
Pt awake, agitated. Unsteady on his feet. Pushed past me into hallway naked. Security called. I was able to have patient return to his room with the help of a PATIENT REGISTRATION SUPERVISOR. It took around 15 minutes for pt to calm down and become reoriented. Pt in pj bottoms and back in bed with bed alarm on.
[2022-02-11 04:00] VITALS: BP 130/73; PULSE 109; RESP 18; TEMP 36.6; O2SAT 95
--- NOTE | 2022-02-11 06:06 | PC.NURSE ---
Pt jumped up and walked out of room with pants around his ankles. Pt assisted with his pants. Pt confused, agitated and angry. Took so coaxing but convinced pt to go back into his room and sit on the bed so I could bandage his hand (he pulled out his IV). New IV placed and am labs drawn.
[2022-02-11] MEDS: 0.9 % Sodium Chloride Flush 3 ML SYRINGE IVFLUSH ×3 (06:33→23:43)
--- NOTE | 2022-02-11 06:54 | PC.NURSE ---
Pt out of room again, agitated and confused. Unsteady on his feet. Staff had to come help as I could not convince him to come back to his room or reorient him right away and he pushed me out of the way to get by me. Pt in bed, reoriented and watching tv.
[2022-02-11 07:18] LABS: Hematocrit 21.6 % (42.0-52.0); Hemoglobin 7.5 g/dl (14.0-18.0); Mean Corpuscular HGB Conc 34.7 g/dl (31.0-36.0); Mean Corpuscular Hemoglobin 29.4 pg (27.0-33.0); Mean Corpuscular Volume 84.7 fL (80.0-98.0); Mean Platelet Volume 11.8 fL (9.4-12.4); Platelet Count 238 X10*3/uL (160-400); Red Blood Count 2.55 X10*6/uL (4.60-5.80); Red Cell Distribution Width 13.1 % (11.0-16.0); White Blood Count 7.8 X10*3/uL (4.8-10.8)
[2022-02-11 07:19] LABS: Anion Gap 22 (12-20); Blood Urea Nitrogen 102 mg/dL (9-16); Calcium 8.8 mg/dL (8.4-10.2); Carbon Dioxide 24 mmol/L (22-29); Chloride 94 mmol/L (96-108); Creatinine Clr Calc Pharmacy 10.8; Estimated Glomerular Filt Rate 6; Glucose Fasting 107 mg/dL (60-99); Potassium 2.7 mmol/L (3.3-5.1); Sodium 137 mmol/L (135-145)
[2022-02-11 07:29] LABS: Vitamin D 25-OH Total 22.1 ng/mL (>30)
[2022-02-11 07:31] LABS: Glucose, Whole Blood 111 mg/dL (60-115)
[2022-02-11 08:00] VITALS: BP 108/51; PULSE 90; RESP 20; TEMP 36.5; O2SAT 98
--- NOTE | 2022-02-11 10:12 | HO.PM.IMPN ---
Subjective Subjective Date of Service: 02/11/22 Interval History: cc: weakness interval history: improved, confused at times Respiratory Respiratory: Reports no additional respiratory complaints Gastrointestinal Gastrointestinal: Reports no additional gastrointestinal complaints Physical Exam Vital Signs: Vital Signs: Last Vital Signs Temp 97.7 F 02/11/22 08:00 Pulse 90 02/11/22 08:00 Resp 20 02/11/22 08:00 BP 108/51 L 02/11/22 08:00 Pulse Ox 98 02/11/22 08:00 O2 Del Method 02/11/22 08:00 O2 Flow Rate 2 02/10/22 20:00 BMI result Body Mass Index 29.9 Appearance: Alert.? Oriented X3.? No acute distress.? Head: Normocephalic, atraumatic, no step-offs or deformities Eyes: Pupils equal, round and reactive to light.? ENT: Pharynx normal.? Neck: Normal inspection.? Neck supple.? CVS: Normal heart rate and rhythm.? Pulses normal.? Respiratory: No respiratory distress.? Breath sounds normal.? Abdomen: Soft and nontender.? Skin: Skin warm and dry.? Normal skin color.? Normal skin turgor.? Extremities: No lower extremity edema.? No calf ttp. 5/5 strength to bilateral upper and lower extremities Neuro: Oriented X 3.? No motor deficit.? No sensory deficit. CN 2-12 intact Objective Data Active Medications Acetaminophen (Acetaminophen 325 Mg Tablet) 650 mg PO Q6H PRN PRN Reason: Pain, Mild (Pain Scale 1-3) Dextrose (Dextrose 50 % 25 Gm/50 Ml Syringe) 25 gm IVPUSH Q15M PRN; Protocol PRN Reason: per Hypoglycemia Standing Ord. Glucose (Glucose Gel 15 Gm Gel..Gram.) 15 gm PO Q15M PRN; Protocol PRN Reason: per Hypoglycemia Standing Ord. Heparin Sodium (Porcine) (Heparin Sodium,Porcine 5,000 Unit/Ml Vial) 5,000 unit SUBCUT Q8H [facility] Last Admin: 02/11/22 04:16 Dose: Not Given Documented By: DILIP Non-Admin Reason: Patient Refused Hydromorphone HCl (Hydromorphone Hcl 0.5 Mg/0.5 Ml Syringe) 0.5 mg IVPUSH Q4H PRN; Protocol PRN Reason: Pain, Severe (Pain Scale 7-10) Insulin Human Lispro (Insulin Lispro 100 Unit/Ml 3 Ml Vial) 0 unit SUBCUT QIDACHS [facility]; Protocol Last Admin: 02/11/22 07:31 Dose: Not Given Documented By: DILIP Non-Admin Reason: No Insulin Coverage Potassium Chloride (Potassium Chloride Er 20 Meq Tab.Er.Prt) 40 meq PO ONCE ONE Stop: 02/11/22 10:12 Senna (Sennosides 8.6 Mg Tablet) 17.2 mg PO BEDTIME PRN PRN Reason: Constipation Sodium Chloride (0.9 % Sodium Chloride Flush 3 Ml Syringe) [facility] Last Admin: 02/11/22 06:33 Dose: 3 ml Documented By: DILIP Labs CBC & Chem 7: 02/11/22 06:16 02/11/22 06:16 Labs: Laboratory Results - last 24 hr 02/09/22 02/10/22 02/10/22 20:20 06:42 12:19 MCV MCH MCHC RDW Plt Count MPV Absolute Nucleated RBC Nucleated RBC % (auto) Smear Path Review SEE NOTE Anion Gap Estim Creat Clear Calc Estimated GFR POC Glucose 126 H Fasting Glucose Calcium 25-OH Vitamin D Total Blood Type O Positive Antibody Screen NEGATIVE Crossmatch See Detail 02/10/22 02/10/22 02/10/22 13:43 16:46 21:02 MCV MCH MCHC RDW Plt Count MPV Absolute Nucleated RBC Nucleated RBC % (auto) Smear Path Review Anion Gap Estim Creat Clear Calc Estimated GFR POC Glucose 127 H 103 124 H Fasting Glucose Calcium 25-OH Vitamin D Total Blood Type Antibody Screen Crossmatch 02/11/22 02/11/22 02/11/22 06:16 06:16 07:22 MCV 84.7 MCH 29.4 MCHC 34.7 RDW 13.1 Plt Count 238 MPV 11.8 Absolute Nucleated RBC 0.000 Nucleated RBC % (auto) 0.0 Smear Path Review Anion Gap 22 H Estim Creat Clear Calc 10.8 Estimated GFR 6 POC Glucose 111 Fasting Glucose 107 H Calcium 8.8 D 25-OH Vitamin D Total 22.1 Blood Type Antibody Screen Crossmatch Microbiology Microbiology Results: Microbiology 02/09/22 17:55 Urine Culture - Final Urine clean catch - Urine wall top No growth. Assessment and Plan (1) ESRD (end stage renal disease): Status: Acute Plan 51M pmh sarcoid, CKD V, presented with weakness LYNDSAY on CKD V complicated by metabolic encephalopathy and metabolic acidosis temporary cath placed 02/10/22, started HD acidosis resolved monitor bmp, urine output nephro following hypokalemia replace, monitor anemia due to kidney disease transfused 1 unit prbc 02/10/22 hgb improved appropriately from 6.9 to 7.5 DM insulin sarcoid outpatient follow up dvt prophylaxis - hep sq full code reason for continued hospitalization: significant lyndsay on CKDV requiring HD, ongoing encephalopathy Quality Stroke Does the patient have a stroke diagnosis?: No VTE Prior VTE?: No VTE Risk Level:: Medical - moderate - high VTE Device Contraindication: Treatment Not Indicated VTE Drug Contraindication: N/A - Med Ordered
--- NOTE | 2022-02-11 10:22 | P.PNNP_ITS ---
Subjective Subjective Date of Service: 02/11/22 Interval history: cc: weakness interval history: improved, confused at times Physical Exam Vital Signs: Vital Signs: Last Vital Signs Temp 97.7 F 02/11/22 08:00 Pulse 90 02/11/22 08:00 Resp 20 02/11/22 08:00 BP 108/51 L 02/11/22 08:00 Pulse Ox 98 02/11/22 08:00 O2 Del Method 02/11/22 08:00 O2 Flow Rate 2 02/10/22 20:00 BMI result Body Mass Index 29.9 Const: General: no acute distress HEENT: Head: Yes normocephalic Neck: Neck: Yes no JVD Resp: Auscultation: clear to auscultation bilaterally Cardio: Jugular venous distension: no JVD Rate: regular rate Rhythm: regular rhythm GI: Auscultation: normal bowel sounds Neuro: General: moves all extremities Extrem: General: Yes no clubbing, cyanosis or edema Objective Data Labs CBC & Chem 7: 02/11/22 06:16 02/11/22 06:16 Labs: Laboratory Results - last 24 hr 02/09/22 02/10/22 02/10/22 20:20 06:42 12:19 WBC RBC Hgb Hct MCV MCH MCHC RDW Plt Count MPV Absolute Nucleated RBC Nucleated RBC % (auto) Smear Path Review SEE NOTE Sodium Potassium Chloride Carbon Dioxide Anion Gap BUN Creatinine Estim Creat Clear Calc Estimated GFR POC Glucose 126 H Fasting Glucose Calcium 25-OH Vitamin D Total Blood Type O Positive Antibody Screen NEGATIVE Crossmatch See Detail 02/10/22 02/10/22 02/10/22 13:43 16:46 21:02 WBC RBC Hgb Hct MCV MCH MCHC RDW Plt Count MPV Absolute Nucleated RBC Nucleated RBC % (auto) Smear Path Review Sodium Potassium Chloride Carbon Dioxide Anion Gap BUN Creatinine Estim Creat Clear Calc Estimated GFR POC Glucose 127 H 103 124 H Fasting Glucose Calcium 25-OH Vitamin D Total Blood Type Antibody Screen Crossmatch 02/11/22 02/11/22 02/11/22 06:16 06:16 07:22 WBC 7.8 RBC 2.55 L Hgb 7.5 L Hct 21.6 L MCV 84.7 MCH 29.4 MCHC 34.7 RDW 13.1 Plt Count 238 MPV 11.8 Absolute Nucleated RBC 0.000 Nucleated RBC % (auto) 0.0 Smear Path Review Sodium 137 Potassium 2.7 L D Chloride 94 L Carbon Dioxide 24 Anion Gap 22 H BUN 102 H D Creatinine 9.45 H* Estim Creat Clear Calc 10.8 Estimated GFR 6 POC Glucose 111 Fasting Glucose 107 H Calcium 8.8 D 25-OH Vitamin D Total 22.1 Blood Type Antibody Screen Crossmatch Microbiology Microbiology Results: Microbiology 02/09/22 17:55 Urine clean catch - Urine wall top Urine Culture - Final No growth. Procedures Date of Service Date of Service: 02/11/22 Assessment & Plan Assessment and plan (1) [id number] kidney injury: Status: Acute (2) Acidosis: Status: Acute Plan 51-year-old male with a history of history of CKD IV/V with multiple LYNDSAY's in the past requiring short term HD, recurrent renal stones, polysubstance abuse, hypertension, depression, anemia and sarcoidosis who presented to ED for witnessed syncopal episode. 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 He has clotted LUE AVF so patient was transferred to ICU for temp line placement and initiation of HD. . Given his elevated bun/cr, syncopal episode which may be secondary to uremia, and oliguria despite ivf admin in ED, Decision was made to initiate HD today via temp catheter. If no improvement may require permcath for fpc HD Will repeat HD and reassess renal fx/uop moving forward for evidence of recovery. hx renal stones. Renal US to rule out obstruction. - no hydronephrosis noted. non-obs stone R kidney pth, vitD, vit 1,25 ( pending) hold nsaids, acei/arb, IV contrast. Hypokalemia Replace K orally x 1 dose Use K3.0 bath with HD Time Spent With Patient Time: Total time spent is greater than 50% in coordination of care (as documented) at patient's floor/unit and/or counseling patient: Progress Note: Quality Stroke Does the patient have a stroke diagnosis?: No
[2022-02-11 11:11] VITALS: BP 118/66; PULSE 94; RESP 20; TEMP 36.9; O2SAT 97
[2022-02-11 11:19] LABS: Glucose, Whole Blood 114 mg/dL (60-115)
[2022-02-11] MEDS: Potassium Chloride ER 20 MEQ TAB.ER.PRT 40 MEQ PO (11:30)
[2022-02-11] MEDS: LORazepam 0.5 MG TABLET PO ×3 (13:42→23:46)
[2022-02-11 16:00] VITALS: BP 135/70; PULSE 109; RESP 18; TEMP 36.6; O2SAT 99
--- NOTE | 2022-02-11 16:12 | MHC.CM.PN ---
Male 51 DX Syncope Patient is requiring HD during this admission. Family states that he had a similar episode involving HD 7 years ago. He lives by himself. His dtr is his HCP. A copy has been requested. He is independent all functional mobility. He uses a cane prn. It is unknown if the patient will require further HD in the community. Spoke with Patient and family in HD re DP. Referrals have been sent to [facility], at family request. BLS transport. If the patient goes home, the family will provide transportation at discharge.
[2022-02-11 16:13] LABS: Glucose, Whole Blood 94 mg/dL (60-115)
[2022-02-11 19:53] VITALS: BP 124/64; PULSE 86; RESP 18; TEMP 36.6; O2SAT 97
[2022-02-11 20:54] LABS: Glucose, Whole Blood 159 mg/dL (60-115)
[2022-02-11] MEDS: Heparin Sodium,Porcine 5,000 UNIT/ML VIAL 5000 UNIT SUBCUT (21:22)
[2022-02-11] MEDS: Insulin Lispro 100 UNIT/ML 3 ML VIAL SUBCUT (21:23)
[2022-02-12] VITALS (7 sets, daily range): BP systolic 126–157; BP diastolic 62–83; PULSE 90–108; RESP 16–18; TEMP 36.6–37.1; O2SAT 98–100
[2022-02-12 06:03] LABS: Hematocrit 23.8 % (42.0-52.0); Hemoglobin 7.9 g/dl (14.0-18.0); Mean Corpuscular HGB Conc 33.2 g/dl (31.0-36.0); Mean Corpuscular Volume 87.5 fL (80.0-98.0); Platelet Count 256 X10*3/uL (160-400); Red Blood Count 2.72 X10*6/uL (4.60-5.80); Red Cell Distribution Width 13.3 % (11.0-16.0); White Blood Count 6.8 X10*3/uL (4.8-10.8)
[2022-02-12 06:29] LABS: Anion Gap 19 (12-20); Blood Urea Nitrogen 69 mg/dL (9-16); Calcium 9.2 mg/dL (8.4-10.2); Carbon Dioxide 24 mmol/L (22-29); Chloride 96 mmol/L (96-108); Creatinine Clr Calc Pharmacy 14.8; Estimated Glomerular Filt Rate 8; Glucose Fasting 91 mg/dL (60-99); Sodium 136 mmol/L (135-145)
[2022-02-12 07:46] LABS: Glucose, Whole Blood 90 mg/dL (60-115)
[2022-02-12 07:46] LABS: HBS Num1 1.35 mIU/mL (0-7.99); HBc Num1 0.24 S/CO (0.00-0.79); HBsAGNum1 0.18 S/CO (0.00-0.99); Hepatitis B Core Antibody Nonreactive (Nonreactive); Hepatitis B Surface Antigen Negative (Negative); ~Hepatitis B Surface Antibody NONREACTIVE (Nonreactive)
[2022-02-12] MEDS: 0.9 % Sodium Chloride Flush 3 ML SYRINGE IVFLUSH ×2 (07:56→17:42)
--- NOTE | 2022-02-12 10:50 | HO.PM.IMPN ---
Subjective Subjective Date of Service: 02/12/22 Interval History: cc: weakness interval history: improved, confused at times Respiratory Respiratory: Reports no additional respiratory complaints Gastrointestinal Gastrointestinal: Reports no additional gastrointestinal complaints Physical Exam Vital Signs: Vital Signs: Last Vital Signs Temp 98.1 F 02/12/22 07:32 Pulse 97 02/12/22 07:32 Resp 17 02/12/22 07:32 BP 126/62 02/12/22 07:32 Pulse Ox 98 02/12/22 07:32 O2 Del Method 02/12/22 07:32 O2 Flow Rate 2 02/10/22 20:00 BMI result Body Mass Index 29.9 Appearance: Alert.? Oriented X3.? No acute distress.? Head: Normocephalic, atraumatic, no step-offs or deformities Eyes: Pupils equal, round and reactive to light.? ENT: Pharynx normal.? Neck: Normal inspection.? Neck supple.? CVS: Normal heart rate and rhythm.? Pulses normal.? Respiratory: No respiratory distress.? Breath sounds normal.? Abdomen: Soft and nontender.? Skin: Skin warm and dry.? Normal skin color.? Normal skin turgor.? Extremities: No lower extremity edema.? No calf ttp. 5/5 strength to bilateral upper and lower extremities Neuro: Oriented X 3.? No motor deficit.? No sensory deficit. CN 2-12 intact Objective Data Active Medications Acetaminophen (Acetaminophen 325 Mg Tablet) 650 mg PO Q6H PRN PRN Reason: Pain, Mild (Pain Scale 1-3) Dextrose (Dextrose 50 % 25 Gm/50 Ml Syringe) 25 gm IVPUSH Q15M PRN; Protocol PRN Reason: per Hypoglycemia Standing Ord. Glucose (Glucose Gel 15 Gm Gel..Gram.) 15 gm PO Q15M PRN; Protocol PRN Reason: per Hypoglycemia Standing Ord. Heparin Sodium (Porcine) (Heparin Sodium,Porcine 5,000 Unit/Ml Vial) 5,000 unit SUBCUT Q8H [facility] Last Admin: 02/12/22 04:09 Dose: Not Given Documented By: GUS Non-Admin Reason: pt finally asleep Hydromorphone HCl (Hydromorphone Hcl 0.5 Mg/0.5 Ml Syringe) 0.5 mg IVPUSH Q4H PRN; Protocol PRN Reason: Pain, Severe (Pain Scale 7-10) Insulin Human Lispro (Insulin Lispro 100 Unit/Ml 3 Ml Vial) 0 unit SUBCUT QIDACHS [facility]; Protocol Last Admin: 02/12/22 07:51 Dose: Not Given Documented By: SIVAKUMAR Non-Admin Reason: No Insulin Coverage Lorazepam (Lorazepam 0.5 Mg Tablet) 0.5 mg PO Q8H PRN PRN Reason: Anxiety Last Admin: 02/11/22 23:46 Dose: 0.5 mg Documented By: GUS Senna (Sennosides 8.6 Mg Tablet) 17.2 mg PO BEDTIME PRN PRN Reason: Constipation Sodium Chloride (0.9 % Sodium Chloride Flush 3 Ml Syringe) 3 ml IVFLUSH [facility] Last Admin: 02/12/22 07:56 Dose: 3 ml Documented By: SIVAKUMAR Labs CBC & Chem 7: 02/12/22 05:40 02/12/22 05:40 Labs: Laboratory Results - last 24 hr 02/11/22 02/11/22 02/11/22 11:10 14:48 16:09 MCV MCH MCHC RDW Plt Count MPV Absolute Nucleated RBC Nucleated RBC % (auto) Anion Gap Estim Creat Clear Calc Estimated GFR POC Glucose 114 94 Fasting Glucose Calcium Hep Bs Antigen Negative Hep Bs Antibody NONREACTIVE Hep B Core Total Ab Nonreactive 02/11/22 02/12/22 02/12/22 20:50 05:40 05:40 MCV 87.5 MCH 29.0 MCHC 33.2 RDW 13.3 Plt Count 256 MPV 11.0 Absolute Nucleated RBC 0.000 Nucleated RBC % (auto) 0.0 Anion Gap 19 Estim Creat Clear Calc 14.8 Estimated GFR 8 POC Glucose 159 H Fasting Glucose 91 Calcium 9.2 Hep Bs Antigen Hep Bs Antibody Hep B Core Total Ab 02/12/22 07:39 MCV MCH MCHC RDW Plt Count MPV Absolute Nucleated RBC Nucleated RBC % (auto) Anion Gap Estim Creat Clear Calc Estimated GFR POC Glucose 90 Fasting Glucose Calcium Hep Bs Antigen Hep Bs Antibody Hep B Core Total Ab Microbiology Microbiology Results: Microbiology 02/09/22 17:55 Urine Culture - Final Urine clean catch - Urine wall top No growth. Assessment and Plan (1) ESRD (end stage renal disease): Status: Acute Plan 51M pmh sarcoid, CKD V, presented with weakness LYNDSAY on CKD V complicated by metabolic encephalopathy and metabolic acidosis temporary cath placed 02/10/22, started HD acidosis resolved monitor bmp, urine output nephro following encephlaopthy and uremia slowly improving hypokalemia replace, monitor anemia due to kidney disease transfused 1 unit prbc 02/10/22 hgb improved appropriately from 6.9 to 7.5, now 7.9 DM insulin sarcoid outpatient follow up dvt prophylaxis - hep sq full code reason for continued hospitalization: significant lyndsay on CKDV requiring HD, Quality Stroke Does the patient have a stroke diagnosis?: No VTE Prior VTE?: No VTE Risk Level:: Medical - moderate - high VTE Device Contraindication: Treatment Not Indicated VTE Drug Contraindication: N/A - Med Ordered
[2022-02-12] MEDS: Potassium Chloride ER 20 MEQ TAB.ER.PRT 40 MEQ PO (11:10)
[2022-02-12] MEDS: Heparin Sodium,Porcine 5,000 UNIT/ML VIAL 5000 UNIT SUBCUT (11:11)
[2022-02-12 11:52] LABS: Glucose, Whole Blood 109 mg/dL (60-115)
[2022-02-12 15:58] LABS: Glucose, Whole Blood 113 mg/dL (60-115)
[2022-02-12 16:47] LABS: Calcium (PTHI) 8.9 mg/dL (8.6-10.3); PTHI 3045 pg/mL (16-77)
[2022-02-12 20:42] LABS: Glucose, Whole Blood 125 mg/dL (60-115)
[2022-02-13] VITALS (9 sets, daily range): BP systolic 113–156; BP diastolic 59–89; PULSE 86–104; RESP 14–20; TEMP 36.2–37; O2SAT 98–100
[2022-02-13] MEDS: LORazepam 0.5 MG TABLET PO ×2 (00:37→10:06)
[2022-02-13] MEDS: HYDROmorphone HCl 0.5 MG/0.5 ML SYRINGE IVPUSH ×3 (00:42→10:06)
[2022-02-13] MEDS: 0.9 % Sodium Chloride Flush 3 ML SYRINGE IVFLUSH ×4 (00:42→21:11)
[2022-02-13] MEDS: Heparin Sodium,Porcine 5,000 UNIT/ML VIAL 5000 UNIT SUBCUT (04:11)
[2022-02-13 06:11] LABS: Hematocrit 22.9 % (42.0-52.0); Hemoglobin 7.5 g/dl (14.0-18.0); Mean Corpuscular HGB Conc 32.8 g/dl (31.0-36.0); Mean Corpuscular Hemoglobin 28.4 pg (27.0-33.0); Mean Corpuscular Volume 86.7 fL (80.0-98.0); Platelet Count 246 X10*3/uL (160-400); Red Blood Count 2.64 X10*6/uL (4.60-5.80); Red Cell Distribution Width 13.1 % (11.0-16.0); White Blood Count 8.2 X10*3/uL (4.8-10.8)
[2022-02-13 07:11] LABS: Anion Gap 20 (12-20); Blood Urea Nitrogen 79 mg/dL (9-16); Carbon Dioxide 21 mmol/L (22-29); Chloride 96 mmol/L (96-108); Creatinine Clr Calc Pharmacy 13.7; Estimated Glomerular Filt Rate 8; Glucose Fasting 89 mg/dL (60-99); Potassium 3.2 mmol/L (3.3-5.1); Sodium 134 mmol/L (135-145)
[2022-02-13 07:36] LABS: Glucose, Whole Blood 92 mg/dL (60-115)
--- NOTE | 2022-02-13 10:09 | P.PNNP_ITS ---
Subjective Subjective Date of Service: 02/14/22 Interval history: cc: weakness interval history: improved, confused at times Physical Exam Vital Signs: Vital Signs: Last Vital Signs Temp 97.2 F 02/13/22 07:29 Pulse 104 H 02/13/22 07:29 Resp 20 02/13/22 07:29 BP 140/77 H 02/13/22 07:29 Pulse Ox 98 02/13/22 07:29 O2 Del Method 02/13/22 07:29 O2 Flow Rate 2 02/10/22 20:00 BMI result Body Mass Index 29.9 Const: General: no acute distress HEENT: Head: Yes normocephalic Neck: Neck: Yes no JVD Resp: Auscultation: clear to auscultation bilaterally Cardio: Jugular venous distension: no JVD Rate: regular rate Rhythm: regular rhythm GI: Auscultation: normal bowel sounds Neuro: General: moves all extremities Extrem: General: Yes no clubbing, cyanosis or edema Objective Data Labs CBC & Chem 7: 02/14/22 06:08 02/14/22 06:08 Labs: Laboratory Results - last 24 hr 02/11/22 02/12/22 02/12/22 06:16 11:19 15:53 WBC RBC Hgb Hct MCV MCH MCHC RDW Plt Count MPV Absolute Nucleated RBC Nucleated RBC % (auto) Sodium Potassium Chloride Carbon Dioxide Anion Gap BUN Creatinine Estim Creat Clear Calc Estimated GFR POC Glucose 109 113 Fasting Glucose Calcium PTH Intact 3045 H Calcium (PTH Intact) 8.9 02/12/22 02/13/22 02/13/22 20:39 05:41 05:41 WBC 8.2 RBC 2.64 L Hgb 7.5 L Hct 22.9 L MCV 86.7 MCH 28.4 MCHC 32.8 RDW 13.1 Plt Count 246 MPV 11.0 Absolute Nucleated RBC 0.000 Nucleated RBC % (auto) 0.0 Sodium 134 L Potassium 3.2 L Chloride 96 Carbon Dioxide 21 L Anion Gap 20 BUN 79 H Creatinine 7.47 H* Estim Creat Clear Calc 13.7 Estimated GFR 8 POC Glucose 125 H Fasting Glucose 89 Calcium 9.0 PTH Intact Calcium (PTH Intact) 02/13/22 07:29 WBC RBC Hgb Hct MCV MCH MCHC RDW Plt Count MPV Absolute Nucleated RBC Nucleated RBC % (auto) Sodium Potassium Chloride Carbon Dioxide Anion Gap BUN Creatinine Estim Creat Clear Calc Estimated GFR POC Glucose 92 Fasting Glucose Calcium PTH Intact Calcium (PTH Intact) Microbiology Microbiology Results: Microbiology 02/09/22 17:55 Urine clean catch - Urine wall top Urine Culture - Final No growth. Procedures Date of Service Date of Service: 02/13/22 Assessment & Plan Assessment and plan (1) [id number] kidney injury: Status: Acute (2) Acidosis: Status: Acute Plan 51-year-old male with a history of history of CKD IV/V with multiple LYNDSAY's in the past requiring short term HD, recurrent renal stones, polysubstance abuse, hypertension, depression, anemia and sarcoidosis who presented to ED for witnessed syncopal episode. 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 He has clotted LUE AVF so patient was transferred to ICU for temp line placement and initiation of HD. . Given his elevated bun/cr, syncopal episode which may be secondary to uremia, and oliguria despite ivf admin in ED, Decision was made to initiate HD today via temp catheter. 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 hx renal stones. Renal US to rule out obstruction. - no hydronephrosis noted. non-obs stone R kidney pth, vitD, vit 1,25 ( pending) hold nsaids, acei/arb, IV contrast. Hypokalemia Replace K orally x 1 dose Use K3.0 bath with HD Needs Permcath Will arrange for op dialysis Time Spent With Patient Time: Total time spent is greater than 50% in coordination of care (as documented) at patient's floor/unit and/or counseling patient: Progress Note: Quality Stroke Does the patient have a stroke diagnosis?: No
--- NOTE | 2022-02-13 10:45 | P.PNIM_ITS ---
Subjective Subjective Date of Service: 02/13/22 Interval History: cc: weakness interval history: improved, confused at times Respiratory Respiratory: Reports no additional respiratory complaints Gastrointestinal Gastrointestinal: Reports no additional gastrointestinal complaints Physical Exam Vital Signs: Vital Signs: Last Vital Signs Temp 97.2 F 02/13/22 07:29 Pulse 104 H 02/13/22 07:29 Resp 20 02/13/22 07:29 BP 140/77 H 02/13/22 07:29 Pulse Ox 98 02/13/22 07:29 O2 Del Method 02/13/22 07:29 O2 Flow Rate 2 02/10/22 20:00 BMI result Body Mass Index 29.9 Const: General: no acute distress HEENT: Head: Yes normocephalic Neck: Neck: Yes no JVD Resp: Auscultation: clear to auscultation bilaterally Cardio: Jugular venous distension: no JVD Rate: regular rate Rhythm: regular rhythm GI: Auscultation: normal bowel sounds Neuro: General: moves all extremities Extrem: General: Yes no clubbing, cyanosis or edema Objective Data Active Medications Acetaminophen (Acetaminophen 325 Mg Tablet) 650 mg PO Q6H PRN PRN Reason: Pain, Mild (Pain Scale 1-3) Dextrose (Dextrose 50 % 25 Gm/50 Ml Syringe) 25 gm IVPUSH Q15M PRN; Protocol PRN Reason: per Hypoglycemia Standing Ord. Glucose (Glucose Gel 15 Gm Gel..Gram.) 15 gm PO Q15M PRN; Protocol PRN Reason: per Hypoglycemia Standing Ord. Heparin Sodium (Porcine) (Heparin Sodium,Porcine 5,000 Unit/Ml Vial) 5,000 unit SUBCUT Q8H [facility] Last Admin: 02/13/22 04:11 Dose: 5,000 unit Documented By: JAYDENARTB Hydromorphone HCl (Hydromorphone Hcl 0.5 Mg/0.5 Ml Syringe) 0.5 mg IVPUSH Q4H PRN; Protocol PRN Reason: Pain, Severe (Pain Scale 7-10) Last Admin: 02/13/22 10:06 Dose: 0.5 mg Documented By: SIVAKUMAR Insulin Human Lispro (Insulin Lispro 100 Unit/Ml 3 Ml Vial) 0 unit SUBCUT QIDAC HS [facility]; Protocol Last Admin: 02/13/22 08:01 Dose: Not Given Documented By: SIVAKUMAR Non-Admin Reason: No Insulin Coverage Lorazepam (Lorazepam 0.5 Mg Tablet) 0.5 mg PO Q8H PRN PRN Reason: Anxiety Last Admin: 02/13/22 10:06 Dose: 0.5 mg Documented By: SIVAKUMAR Senna (Sennosides 8.6 Mg Tablet) 17.2 mg PO BEDTIME PRN PRN Reason: Constipation Sodium Chloride (0.9 % Sodium Chloride Flush 3 Ml Syringe) 3 ml IVFLUSH QSHIFT [facility] Last Admin: 02/13/22 08:02 Dose: 3 ml Documented By: SIVAKUMAR Labs CBC & Chem 7: 02/13/22 05:41 02/13/22 05:41 Labs: Laboratory Results - last 24 hr 02/11/22 02/12/22 02/12/22 06:16 11:19 15:53 MCV MCH MCHC RDW Plt Count MPV Absolute Nucleated RBC Nucleated RBC % (auto) Anion Gap Estim Creat Clear Calc Estimated GFR POC Glucose 109 113 Fasting Glucose Calcium PTH Intact 3045 H Calcium (PTH Intact) 8.9 Crossmatch 02/12/22 02/13/22 02/13/22 20:39 05:41 05:41 MCV 86.7 MCH 28.4 MCHC 32.8 RDW 13.1 Plt Count 246 MPV 11.0 Absolute Nucleated RBC 0.000 Nucleated RBC % (auto) 0.0 Anion Gap 20 Estim Creat Clear Calc 13.7 Estimated GFR 8 POC Glucose 125 H Fasting Glucose 89 Calcium 9.0 PTH Intact Calcium (PTH Intact) Crossmatch 02/13/22 02/13/22 07:29 10:20 MCV MCH MCHC RDW Plt Count MPV Absolute Nucleated RBC Nucleated RBC % (auto) Anion Gap Estim Creat Clear Calc Estimated GFR POC Glucose 92 Fasting Glucose Calcium PTH Intact Calcium (PTH Intact) Crossmatch See Detail Assessment and Plan (1) ESRD (end stage renal disease): Status: Acute Plan 51M pmh sarcoid, CKD V, presented with weakness LYNDSAY on CKD V complicated by metabolic encephalopathy and metabolic acidosis temporary cath placed 02/10/22, started HD acidosis improved nephro following encephlaopthy and uremia slowly improving plan to place permanent catheter 02/14/22, npo after midnight hypokalemia replace, monitor anemia due to kidney disease transfused 1 unit prbc 02/10/22 hgb improved appropriately from 6.9 to 7.5, now 7.5, will transfuse a 2nd unit today DM insulin sarcoid outpatient follow up dvt prophylaxis - hep sq full code reason for continued hospitalization: significant lyndsay on CKDV requiring HD, needs perm cath and outpatient HD set up Quality Stroke Does the patient have a stroke diagnosis?: No VTE Prior VTE?: No VTE Risk Level:: Medical - moderate - high VTE Device Contraindication: Treatment Not Indicated VTE Drug Contraindication: N/A - Med Ordered
[2022-02-13 11:11] LABS: Glucose, Whole Blood 105 mg/dL (60-115)
[2022-02-13] MEDS: Potassium Chloride ER 20 MEQ TAB.ER.PRT 40 MEQ PO (12:23)
--- NOTE | 2022-02-13 15:11 | PC.NURSE ---
Alert and responsive. C/O BLE pain, prn dilaudid given with good effect. VSS, afebrile, no acute resp. distress. Infused with 1unit of PRBC for low H&H, tolerated it well, no adverse reactions noted. No dialysis today, will go tomorrow. potassium replaced. Continue with 1:1 sitter for safety. Will continue to monitor and treat per plan of care.
--- NOTE | 2022-02-13 15:16 | MHC.CM.PN ---
DP Home with Community HD. Family will provide transportation. Plan is for a Permacath placement. Patient will also need a community HD center prior to discharge.
[2022-02-13 15:50] LABS: Glucose, Whole Blood 90 mg/dL (60-115)
[2022-02-13 21:04] LABS: Glucose, Whole Blood 91 mg/dL (60-115)
[2022-02-14 03:18] VITALS: BP 149/69; PULSE 91; RESP 18; TEMP 36.2; O2SAT 99
[2022-02-14] MEDS: LORazepam 0.5 MG TABLET PO ×2 (03:27→10:53)
[2022-02-14] MEDS: HYDROmorphone HCl 0.5 MG/0.5 ML SYRINGE IVPUSH ×3 (04:38→17:22)
[2022-02-14 06:32] LABS: Hematocrit 25.4 % (42.0-52.0); Hemoglobin 8.6 g/dl (14.0-18.0); Mean Corpuscular HGB Conc 33.9 g/dl (31.0-36.0); Mean Corpuscular Volume 85.5 fL (80.0-98.0); Mean Platelet Volume 10.7 fL (9.4-12.4); Platelet Count 247 X10*3/uL (160-400); Red Blood Count 2.97 X10*6/uL (4.60-5.80); Red Cell Distribution Width 13.9 % (11.0-16.0); White Blood Count 8.4 X10*3/uL (4.8-10.8)
[2022-02-14 06:36] LABS: Prothrombin Time 10.9 SEC (10.0-13.1)
[2022-02-14 06:39] LABS: Partial Thromboplastin Time 28.2 SEC (26.0-36.4)
[2022-02-14 07:10] LABS: Anion Gap 22 (12-20); Blood Urea Nitrogen 89 mg/dL (9-16); Calcium 8.9 mg/dL (8.4-10.2); Carbon Dioxide 20 mmol/L (22-29); Chloride 99 mmol/L (96-108); Creatinine Clr Calc Pharmacy 12.2; Estimated Glomerular Filt Rate 7; Glucose Fasting 82 mg/dL (60-99); Potassium 3.7 mmol/L (3.3-5.1); Sodium 137 mmol/L (135-145)
[2022-02-14 07:34] VITALS: BP 132/78; PULSE 93; RESP 20; TEMP 36.7; O2SAT 97
[2022-02-14 07:49] LABS: Glucose, Whole Blood 89 mg/dL (60-115)
[2022-02-14] MEDS: Lidocaine HCl 1 % 20 ML VIAL 5 ML SUBCUT (09:30)
[2022-02-14 09:52] VITALS: BP 137/85; PULSE 77; RESP 16; TEMP 36.6; O2SAT 99
[2022-02-14 10:06] VITALS: BP 138/89; PULSE 93; RESP 17; O2SAT 97
--- NOTE | 2022-02-14 10:22 | W.PM.DNNEP ---
Subjective Subjective This patient was seen during dialysis. Interval history: cc: weakness interval history: improved, Physical Exam Vital Signs: Vital Signs: Last Vital Signs Temp 98 F 02/14/22 09:52 Pulse 93 02/14/22 10:06 Resp 17 02/14/22 10:06 BP 138/89 02/14/22 10:06 Pulse Ox 97 02/14/22 10:06 O2 Del Method 02/14/22 10:06 O2 Flow Rate 2 02/10/22 20:00 BMI result Body Mass Index 29.9 Const: General: no acute distress HEENT: Head: Yes normocephalic Neck: Neck: Yes no JVD Resp: Auscultation: clear to auscultation bilaterally Cardio: Jugular venous distension: no JVD Rate: regular rate Rhythm: regular rhythm GI: Auscultation: normal bowel sounds Neuro: General: moves all extremities Extrem: General: Yes no clubbing, cyanosis or edema Assessment & Plan Assessment and plan (1) Ixtir-os-jutevhp kidney injury: Status: Acute (2) Acidosis: Status: Acute Plan 51-year-old male with a history of history of CKD IV/V with multiple LYNDSAY's in the past requiring short term HD, recurrent renal stones, polysubstance abuse, hypertension, depression, anemia and sarcoidosis who presented to ED for witnessed syncopal episode. 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 He has clotted LUE AVF so patient was transferred to ICU for temp line placement and initiation of HD. . Given his elevated bun/cr, syncopal episode which may be secondary to uremia, and oliguria despite ivf admin in ED, Decision was made to initiate HD today via temp catheter. If no improvement may require permcath for [facility] hx renal stones. Renal US to rule out obstruction. - no hydronephrosis noted. non-obs stone R kidney pth, vitD, vit 1,25 ( pending) hold nsaids, acei/arb, IV contrast. Hypokalemia Replace K orally x 1 dose Use K3.0 bath with HD Will arrange for op dialysis Time Spent With Patient Time: Total time spent is greater than 50% in coordination of care (as documented) at patient's floor/unit and/or counseling patient: Procedures Date of Service Date of Service: 02/14/22
[2022-02-14] MEDS: 0.9 % Sodium Chloride Flush 3 ML SYRINGE IVFLUSH ×2 (10:54→17:22)
[2022-02-14] MEDS: Acetaminophen 325 MG TABLET 650 MG PO (12:58)
--- NOTE | 2022-02-14 15:45 | HO.PM.IMPN ---
Subjective Subjective Date of Service: 02/14/22 Interval History: Seen and evaluated PermCath placed, had dialysis session No complaints overnight Review of Systems No fever, chills or weakness No chest pain, palpitation No shortness of breath or coughing No abdominal pain, nausea or vomiting No urinary symptoms No any rash or wounds Physical Exam Vital Signs: Vital Signs: Last Vital Signs Temp 98 F 02/14/22 09:52 Pulse 93 02/14/22 10:06 Resp 17 02/14/22 10:06 BP 138/89 02/14/22 10:06 Pulse Ox 97 02/14/22 10:06 O2 Del Method 02/14/22 10:06 O2 Flow Rate 2 02/10/22 20:00 BMI result Body Mass Index 29.9 Const: Other: Constitutional : Alert, oriented, not in distress Neck : Normal inspection, Supple Cardiovascular : RRR, no JVP, no lower extremity edema Respiratory : fair bilateral air entry, no crackles, wheezes or rhonchi Gastrointestinal: soft, lax, Normal bowel sounds, Non tender Skin : Warm, Dry, PermCath in place Neurological : Alert & oriented x3, No focal deficit Objective Data Active Medications Acetaminophen (Acetaminophen 325 Mg Tablet) 650 mg PO Q6H PRN PRN Reason: Pain, Mild (Pain Scale 1-3) Last Admin: 02/14/22 12:58 Dose: 650 mg Documented By: VALERIY Dextrose (Dextrose 50 % 25 Gm/50 Ml Syringe) 25 gm IVPUSH Q15M PRN; Protocol PRN Reason: per Hypoglycemia Standing Ord. Glucose (Glucose Gel 15 Gm Gel..Gram.) 15 gm PO Q15M PRN; Protocol PRN Reason: per Hypoglycemia Standing Ord. Heparin Sodium (Porcine) (Heparin Sodium,Porcine 5,000 Unit/Ml Vial) 5,000 unit SUBCUT Q8H [facility] Last Admin: 02/13/22 04:11 Dose: 5,000 unit Documented By: KARLEE Hydromorphone HCl (Hydromorphone Hcl 0.5 Mg/0.5 Ml Syringe) 0.5 mg IVPUSH Q4H PRN; Protocol PRN Reason: Pain, Severe (Pain Scale 7-10) Last Admin: 02/14/22 10:53 Dose: 0.5 mg Documented By: HO.SHTYBAI Insulin Human Lispro (Insulin Lispro 100 Unit/Ml 3 Ml Vial) 0 unit SUBCUT QIDACHS [facility]; Protocol Last Admin: 02/14/22 13:02 Dose: Not Given Documented By: VALERIY Non-Admin Reason: Off unit: Dialysis Lorazepam (Lorazepam 0.5 Mg Tablet) 0.5 mg PO Q8H PRN PRN Reason: Anxiety Last Admin: 02/14/22 10:53 Dose: 0.5 mg Documented By: VALERIY Comments: per ana paula Camargo to give early Senna (Sennosides 8.6 Mg Tablet) 17.2 mg PO BEDTIME PRN PRN Reason: Constipation Sodium Chloride (0.9 % Sodium Chloride Flush 3 Ml Syringe) 3 ml IVFLUSH [facility] Last Admin: 02/14/22 10:54 Dose: 3 ml Documented By: VALERIY Labs CBC & Chem 7: 02/14/22 06:08 02/14/22 06:08 Labs: Laboratory Results - last 24 hr 02/13/22 02/13/22 02/14/22 15:45 20:50 06:08 MCV 85.5 MCH 29.0 MCHC 33.9 RDW 13.9 Plt Count 247 MPV 10.7 Absolute Nucleated RBC 0.000 Nucleated RBC % (auto) 0.0 PT INR APTT Anion Gap Estim Creat Clear Calc Estimated GFR POC Glucose 90 91 Fasting Glucose Calcium 02/14/22 02/14/22 02/14/22 06:08 06:08 07:33 MCV MCH MCHC RDW Plt Count MPV Absolute Nucleated RBC Nucleated RBC % (auto) PT 10.9 INR 1.0 APTT 28.2 Anion Gap 22 H Estim Creat Clear Calc 12.2 Estimated GFR 7 POC Glucose 89 Fasting Glucose 82 Calcium 8.9 Assessment and Plan (1) ESRD (end stage renal disease): Status: Acute Plan 51M pmh sarcoid, CKD V, presented with weakness LYNDSAY on CKD V complicated by metabolic encephalopathy and metabolic acidosis PermCath placed this morning 02/14/22 acidosis improved nephro following encephlaopthy and uremia slowly improving plan to discharge home once outpatient HD ready hypokalemia replace, monitor anemia due to kidney disease transfused 1 unit prbc 02/10/22 hgb improved appropriately from 6.9 to 7.5, now 7.5, will transfuse a 2nd unit today DM insulin sarcoid outpatient follow up dvt prophylaxis - hep sq full code reason for continued hospitalization: significant lyndsay on CKDV requiring HD, pending outpatient HD set up Quality Stroke Does the patient have a stroke diagnosis?: No VTE Prior VTE?: No VTE Risk Level:: Medical - moderate - high VTE Device Contraindication: Treatment Not Indicated VTE Drug Contraindication: N/A - Med Ordered
[2022-02-14 16:00] VITALS: BP 109/47; PULSE 90; RESP 18; TEMP 36.6; O2SAT 100
--- NOTE | 2022-02-14 16:20 | MHC.CM.PN ---
Patient had permacath placed this am. He received HD after perma cath placement. Per HD nurse, new access working well. Patient ready to discharge. Nephrology is working to secure a Community HD slot. Patient will discharge once the community HD slot is obtained. DP home with family support and transportation.
[2022-02-14 16:30] LABS: Glucose, Whole Blood 151 mg/dL (60-115)
[2022-02-14] MEDS: Insulin Lispro 100 UNIT/ML 3 ML VIAL SUBCUT (17:21)
[2022-02-14 18:12] LABS: Calcium, Ionized 4.6 mg/dL (4.8-5.6)
[2022-02-14 20:00] VITALS: BP 122/79; PULSE 99; RESP 18; TEMP 36.9; O2SAT 100
[2022-02-14 21:13] LABS: Glucose, Whole Blood 85 mg/dL (60-115)
[2022-02-15 03:27] VITALS: BP 106/72; PULSE 129; RESP 18; TEMP 37; O2SAT 98
[2022-02-15] MEDS: Heparin Sodium,Porcine 5,000 UNIT/ML VIAL 5000 UNIT SUBCUT ×3 (03:32→19:35)
[2022-02-15] MEDS: HYDROmorphone HCl 0.5 MG/0.5 ML SYRINGE IVPUSH ×3 (03:34→19:35)
[2022-02-15 06:41] LABS: Anion Gap 20 (12-20); Blood Urea Nitrogen 47 mg/dL (9-16); Calcium 9.5 mg/dL (8.4-10.2); Carbon Dioxide 22 mmol/L (22-29); Chloride 100 mmol/L (96-108); Creatinine Clr Calc Pharmacy 19.1; Estimated Glomerular Filt Rate 11; Glucose Random 130 mg/dL (60-115); Potassium 3.6 mmol/L (3.3-5.1); Sodium 138 mmol/L (135-145)
[2022-02-15 07:28] VITALS: BP 126/69; PULSE 98; RESP 20; TEMP 36.7; O2SAT 98
[2022-02-15 08:00] LABS: Glucose, Whole Blood 130 mg/dL (60-115)
[2022-02-15] MEDS: 0.9 % Sodium Chloride Flush 3 ML SYRINGE IVFLUSH ×2 (09:55→19:35)
[2022-02-15 10:55] VITALS: BP 131/81; PULSE 122; RESP 20; TEMP 37; O2SAT 99
[2022-02-15 11:31] LABS: Glucose, Whole Blood 125 mg/dL (60-115)
--- NOTE | 2022-02-15 12:25 | P.PNNP_ITS ---
Subjective Subjective Date of Service: 02/16/22 Interval history: Seen and evaluated No complaints overnight Physical Exam Vital Signs: Vital Signs: Last Vital Signs Temp 98.6 F 02/15/22 10:55 Pulse 122 H 02/15/22 10:55 Resp 20 02/15/22 10:55 BP 131/81 02/15/22 10:55 Pulse Ox 99 02/15/22 10:55 O2 Del Method 02/15/22 10:55 O2 Flow Rate 2 02/10/22 20:00 BMI result Body Mass Index 29.9 Const: General: no acute distress HEENT: Head: Yes normocephalic Neck: Neck: Yes no JVD Resp: Auscultation: clear to auscultation bilaterally Cardio: Jugular venous distension: no JVD Rate: regular rate Rhythm: regular rhythm GI: Auscultation: normal bowel sounds Neuro: General: moves all extremities Extrem: General: Yes no clubbing, cyanosis or edema Objective Data Labs CBC & Chem 7: 02/14/22 06:08 02/15/22 05:43 Labs: Laboratory Results - last 24 hr 02/11/22 02/14/22 02/14/22 06:16 16:20 20:43 Sodium Potassium Chloride Carbon Dioxide Anion Gap BUN Creatinine Estim Creat Clear Calc Estimated GFR POC Glucose 151 H 85 Random Glucose Calcium Ionized Calcium 4.6 L 02/15/22 02/15/22 02/15/22 05:43 07:39 10:54 Sodium 138 Potassium 3.6 Chloride 100 Carbon Dioxide 22 Anion Gap 20 BUN 47 H Creatinine 5.36 H* Estim Creat Clear Calc 19.1 Estimated GFR 11 POC Glucose 130 H 125 H Random Glucose 130 H Calcium 9.5 D Ionized Calcium Microbiology Microbiology Results: Microbiology 02/09/22 17:55 Urine clean catch - Urine wall top Urine Culture - Final No growth. Procedures Date of Service Date of Service: 02/15/22 Assessment & Plan Assessment and plan (1) Rdabi-ad-utghgxi kidney injury: Status: Acute (2) Acidosis: Status: Acute Plan 51-year-old male with a history of history of CKD IV/V with multiple LYNDSAY's in the past requiring short term HD, recurrent renal stones, polysubstance abuse, hypertension, depression, anemia and sarcoidosis who presented to ED for witnessed syncopal episode. 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 He has clotted LUE AVF so patient was transferred to ICU for temp line placement and initiation of HD. . Given his elevated bun/cr, syncopal episode which may be secondary to uremia, and oliguria despite ivf admin in ED, Decision was made to initiate HD today via temp catheter. If no improvement may require permcath for [facility] HD hx renal stones. Renal US to rule out obstruction. - no hydronephrosis noted. non-obs stone R kidney pth, vitD, vit 1,25 ( pending) hold nsaids, acei/arb, IV contrast. Hypokalemia Replace K orally x 1 dose Use K3.0 bath with HD Will arrange for op dialysis Called HD clinics and awaiting response Time Spent With Patient Time: Total time spent is greater than 50% in coordination of care (as documented) at patient's floor/unit and/or counseling patient: Progress Note: Quality Stroke Does the patient have a stroke diagnosis?: No
[2022-02-15 12:27] LABS: VITAMIN D (1,25 OH) D3 30 pg/mL; Vit D (1,25-Dihydroxy) Total 30 pg/mL (18-72); Vitamin D (1,25 OH) D2 <8 pg/mL
--- NOTE | 2022-02-15 15:08 | P.PNIM_ITS ---
Subjective Subjective Date of Service: 02/15/22 Interval History: Seen and evaluated Eager to go home No complains No complaints overnight Review of Systems No fever, chills or weakness No chest pain, palpitation No shortness of breath or coughing No abdominal pain, nausea or vomiting No urinary symptoms No any rash or wounds Physical Exam Vital Signs: Vital Signs: Last Vital Signs Temp 98.6 F 02/15/22 10:55 Pulse 122 H 02/15/22 10:55 Resp 20 02/15/22 10:55 BP 131/81 02/15/22 10:55 Pulse Ox 99 02/15/22 10:55 O2 Del Method 02/15/22 10:55 O2 Flow Rate 2 02/10/22 20:00 BMI result Body Mass Index 29.9 Const: Other: Constitutional : Alert, oriented, not in distress Neck : Normal inspection, Supple Cardiovascular : RRR, no JVP, no lower extremity edema Respiratory : fair bilateral air entry, no crackles, wheezes or rhonchi Gastrointestinal: soft, lax, Normal bowel sounds, Non tender Skin : Warm, Dry, PermCath in place Neurological : Alert & oriented x3, No focal deficit Objective Data Active Medications Acetaminophen (Acetaminophen 325 Mg Tablet) 650 mg PO Q6H PRN PRN Reason: Pain, Mild (Pain Scale 1-3) Last Admin: 02/14/22 12:58 Dose: 650 mg Documented By: VALERIY Dextrose (Dextrose 50 % 25 Gm/50 Ml Syringe) 25 gm IVPUSH Q15M PRN; Protocol PRN Reason: per Hypoglycemia Standing Ord. Glucose (Glucose Gel 15 Gm Gel..Gram.) 15 gm PO Q15M PRN; Protocol PRN Reason: per Hypoglycemia Standing Ord. Heparin Sodium (Porcine) (Heparin Sodium,Porcine 5,000 Unit/Ml Vial) 5,000 unit SUBCUT Q8H [facility] Last Admin: 02/15/22 12:10 Dose: 5,000 unit Documented By: VALERIY Hydromorphone HCl (Hydromorphone Hcl 0.5 Mg/0.5 Ml Syringe) 0.5 mg IVPUSH Q4H PRN; Protocol PRN Reason: Pain, Severe (Pain Scale 7-10) Last Admin: 02/15/22 09:55 Dose: 0.5 mg Documented By: KENDRA Insulin Human Lispro (Insulin Lispro 100 Unit/Ml 3 Ml Vial) 0 unit SUBCUT QIDACHS [facility]; Protocol Last Admin: 02/15/22 11:35 Dose: Not Given Documented By: KENDRA Non-Admin Reason: No Insulin Coverage Lorazepam (Lorazepam 0.5 Mg Tablet) 0.5 mg PO Q8H PRN PRN Reason: Anxiety Last Admin: 02/14/22 10:53 Dose: 0.5 mg Documented By: VALERIY Comments: per ana paula Camargo to give early Senna (Sennosides 8.6 Mg Tablet) 17.2 mg PO BEDTIME PRN PRN Reason: Constipation Sodium Chloride (0.9 % Sodium Chloride Flush 3 Ml Syringe) 3 ml IVFLUSH [facility] Last Admin: 02/15/22 09:55 Dose: 3 ml Documented By: KENDRA Labs CBC & Chem 7: 02/14/22 06:08 02/15/22 05:43 Labs: Laboratory Results - last 24 hr 02/11/22 02/11/22 02/14/22 06:16 06:16 16:20 Anion Gap Estim Creat Clear Calc Estimated GFR POC Glucose 151 H Random Glucose Calcium Ionized Calcium 4.6 L 1,25 Dihydroxy Vit D 30 1,25 Dihydroxy Vit D2 <8 1,25 Dihydroxy Vit D3 30 02/14/22 02/15/22 02/15/22 20:43 05:43 07:39 Anion Gap 20 Estim Creat Clear Calc 19.1 Estimated GFR 11 POC Glucose 85 130 H Random Glucose 130 H Calcium 9.5 D Ionized Calcium 1,25 Dihydroxy Vit D 1,25 Dihydroxy Vit D2 1,25 Dihydroxy Vit D3 02/15/22 10:54 Anion Gap Estim Creat Clear Calc Estimated GFR POC Glucose 125 H Random Glucose Calcium Ionized Calcium 1,25 Dihydroxy Vit D 1,25 Dihydroxy Vit D2 1,25 Dihydroxy Vit D3 Assessment and Plan (1) ESRD (end stage renal disease): Status: Acute Plan 51M pmh sarcoid, CKD V, presented with weakness LYNDSAY on CKD V complicated by metabolic encephalopathy and metabolic acidosis PermCath placed 02/14/22 acidosis improved nephro following plan to discharge home once outpatient HD ready hypokalemia replace, monitor anemia due to kidney disease Hb of 8.6 after 2 units transfusion Nephrology following for EPO DM insulin sarcoid outpatient follow up dvt prophylaxis - hep sq full code reason for continued hospitalization: significant lyndsay on CKDV requiring HD, pending outpatient HD set up Quality Stroke Does the patient have a stroke diagnosis?: No VTE Prior VTE?: No VTE Risk Level:: Medical - moderate - high VTE Device Contraindication: Treatment Not Indicated VTE Drug Contraindication: N/A - Med Ordered
--- NOTE | 2022-02-15 15:22 | MHC.CM.PN ---
updated dgter re pts dc plan and the search for a hd slot by [facility]
[2022-02-15 16:12] VITALS: BP 130/76; PULSE 93; RESP 18; TEMP 36.4; O2SAT 98
[2022-02-15 16:52] LABS: Glucose, Whole Blood 91 mg/dL (60-115)
[2022-02-15 20:00] VITALS: BP 121/68; PULSE 102; RESP 18; TEMP 36.2; O2SAT 99
[2022-02-15 21:00] LABS: Glucose, Whole Blood 86 mg/dL (60-115)
[2022-02-15 23:36] VITALS: BP 141/63; PULSE 128; RESP 18; TEMP 36.8; O2SAT 100
--- NOTE | 2022-02-16 01:29 | PC.NURSE ---
ASSUMED 23:15...AWAKE..ALERT..ORIENTED X3....STATED AT 23:30 HE WAS LEAVING AMA...DEMANDED TO SPEAK TO NURSING PROGRAMMER ENGINEERING AND SCIENTIFIC..PROGRAMMER ENGINEERING AND SCIENTIFIC PAGED AND PRESENT....PATIENT STATED WANTED TO LEAVE AND WOULD FOLLOW UP WITH RENAL MD AND PCP AFTER DISCHARGE...SIGNED AMA PAPERWORK...PRN ADAPTOR D/C'D INTACT..PERMACATH REMAINED IN PLACE PER PROGRAMMER ENGINEERING AND SCIENTIFIC...PROGRAMMER ENGINEERING [employer] SCIENTIFIC TRANSPORTED PATIENT VIA WHEEL CHAIR TO ER ENTRANCE..PATIENT GIRLFRIEND TO TRANSPORT HOME..DR ALLEN UPDATED AND AWARE
--- NOTE | 2022-02-16 07:45 | PM.EVENT ---
Event Note Date of Service: 02/16/22 Event Note: Discharge summary Discharge diagnosis End-stage renal disease requiring dialysis Acute on chronic kidney disease stage 5 Symptomatic anemia due to kidney disease Metabolic acidosis Hypokalemia The patient was treated in the hospital for worsening acute kidney injury on top of CKD stage 5. PermCath was placed and the patient was treated with hemodialysis. Received 2 units of blood for symptomatic anemia with improvement is his hemoglobin. Nephrology were trying to place him for outpatient dialysis and that was still pending when the patient decided to leave the hospital AMA in the middle of the night.
== END 2022-02-16 01:20 | disposition left against medical advice (07) | DRG 470 ==
LOC: HO.ED 19:31 → HO.EDOVER 19:50 → HO.ICU 02-10 09:51 → HO.IMC 02-10 16:48
PROVIDERS: Internal Medicine; Internal Medicine Hypertension Specialist; Internal Medicine Nephrology; Physician Assistant; Radiology Diagnostic Radiology; Admitting Provider Hospitalist; Emergency Provider Student in an Organized Health Care Education/Training Program; Visit Provider Student in an Organized Health Care Education/Training Program
PROC: 02PY33Z Removal of Infusion Device from Great Vessel, Percutaneous Approach (ICD-10-PCS; principal; 2022-02-14 08:30)
DX: N18.6 End stage renal disease (principal); G93.41 Metabolic encephalopathy; E87.2 Acidosis; D63.1 Anemia in chronic kidney disease; E11.22 Type 2 diabetes mellitus with diabetic chronic kidney disease; D86.9 Sarcoidosis, unspecified; F17.210 Nicotine dependence, cigarettes, uncomplicated; N17.9 Acute kidney failure, unspecified; N20.0 Calculus of kidney; E87.6 Hypokalemia; Z20.822 Contact with and (suspected) exposure to COVID-19; Z71.6 Tobacco abuse counseling; Z91.15 Patient's noncompliance with renal dialysis; Z87.442 Personal history of urinary calculi
CPT/HCPCS: 36415; 36558; 70450; 71045; 72125; 76775; 80048; 80053; 80307; 81001; 82272; 82306; 82330; 82550; 82652; 82947; 83036; 83605; 83735; 83970; 84484; 85025; 85027; 85610; 85730; 86704; 86706; 86850; 86900; 86901; 86923; 87086; 87340; 87635; 90999; 93005; 99152; 99285; C1750; C1758; C1769; J1170; J2150; J3010; P9016

== ENCOUNTER 2022-03-06 09:06 | Outpatient (REF) | payer MEDICAID, SELFPAY ==
--- NOTE | ~2022-03-06 | XR_ITS ---
EXAMINATION: XR THORACIC SPINE XR LUMBAR SPINE CLINICAL INFORMATION: Dorsalgia COMPARISON: 09/16/2014 TECHNIQUE: 2 views, 5 images of the thoracic spine. 6 views of the lumbar spine. FINDINGS: Thoracic spine: No fracture or subluxation. Vertebral body height and alignment maintained. Disc spaces maintained. Small endplate osteophytes at the lower thoracic spine. The paravertebral soft tissues are unremarkable. Left subclavian vascular stent noted. Left-sided central venous catheter terminates near the cavoatrial junction. The visualized lungs are clear. Lumbar spine: No fracture or subluxation. Vertebral body heights are maintained. Grade 1 retrolisthesis of L5 on S1 is unchanged. Mild disc space narrowing of L4-L5. Small multilevel endplate osteophytes with mild facet arthropathy. The sacroiliac joints are symmetric. The visualized sacrum is intact. Normal bowel gas pattern. XR/XR lumbar spine 4V min IMPRESSION: Mild degenerative changes in the thoracic and lumbar spine.
--- NOTE | ~2022-03-06 | XR_ITS ---
EXAMINATION: XR THORACIC SPINE XR LUMBAR SPINE CLINICAL INFORMATION: Dorsalgia COMPARISON: 09/16/2014 TECHNIQUE: 2 views, 5 images of the thoracic spine. 6 views of the lumbar spine. FINDINGS: Thoracic spine: No fracture or subluxation. Vertebral body height and alignment maintained. Disc spaces maintained. Small endplate osteophytes at the lower thoracic spine. The paravertebral soft tissues are unremarkable. Left subclavian vascular stent noted. Left-sided central venous catheter terminates near the cavoatrial junction. The visualized lungs are clear. Lumbar spine: No fracture or subluxation. Vertebral body heights are maintained. Grade 1 retrolisthesis of L5 on S1 is unchanged. Mild disc space narrowing of L4-L5. Small multilevel endplate osteophytes with mild facet arthropathy. The sacroiliac joints are symmetric. The visualized sacrum is intact. Normal bowel gas pattern. XR/XR thoracic spine 2V IMPRESSION: Mild degenerative changes in the thoracic and lumbar spine.
[2022-03-06 09:20] LABS: MANUAL DIFF FLAG NO
[2022-03-06 10:04] LABS: Basophils Absolute Auto 0.1 X10*3/uL (0.0-0.2); Basophils Percent Auto 0.7 % (0-2); Eosinophils Absolute Auto 0.2 X10*3/uL (0.0-0.4); Eosinophils Percent Auto 2.2 % (0-4); Hematocrit 27.2 % (42.0-52.0); Hemoglobin 8.5 g/dl (14.0-18.0); Imm Gran Abs Auto 0.05 X10*3/uL (0.00-0.03); Imm Gran Pct Auto 0.6 % (0.0-0.4); Lymphocytes Absolute Auto 1.9 X10*3/uL (1.2-4.9); Lymphocytes Percent Auto 21.7 % (20-40); Mean Corpuscular HGB Conc 31.3 g/dl (31.0-36.0); Mean Corpuscular Hemoglobin 29.4 pg (27.0-33.0); Mean Corpuscular Volume 94.1 fL (80.0-98.0); Mean Platelet Volume 10.9 fL (9.4-12.4); Monocytes Absolute Auto 0.7 X10*3/uL (0.1-1.2); Monocytes Percent Auto 8.3 % (2-11); Neutrophils Absolute Auto 5.8 x10*3/uL (2.0-8.3); Neutrophils Percent Auto 66.5 % (45-73); Platelet Count 262 X10*3/uL (160-400); Red Blood Count 2.89 X10*6/uL (4.60-5.80); Red Cell Distribution Width 14.1 % (11.0-16.0); White Blood Count 8.7 X10*3/uL (4.8-10.8)
[2022-03-06 10:11] LABS: Estimated Average Glucose 100 mg/dL; Hemoglobin A1c % 5.1 %
[2022-03-06 10:26] LABS: Cholesterol 104 mg/dL; HDL Cholesterol 30 mg/dL; LDL Cholesterol Calculated 55 mg/dl; Magnesium 1.9 mg/dL (1.6-2.6); Triglycerides 99 mg/dL
[2022-03-06 10:46] LABS: HIV AB/AG Nonreactive (Nonreactive); HIV Num 1 0.06 S/CO (0.00-0.99)
[2022-03-06 10:54] LABS: Erythrocyte Sedimentation Rate 62 MM/HR (0-15); Ferritin 447 ng/mL (20-250); TSH reflex Free T4 1.93 uIU/mL (0.32-4.0); Vitamin D 25-OH Total 25.5 ng/mL (>30)
[2022-03-06 11:01] LABS: ~HepC Num1 0.09 S/CO (0.00-0.79); ~Hepatitis C Antibody Nonreactive (Nonreactive)
[2022-03-06 11:10] LABS: Vitamin B12 404 pg/mL (200-900)
== END 2022-03-06 09:07 | disposition home or self-care (01) ==
LOC: HO.LAB 09:06
PROVIDERS: Visit Provider Internal Medicine
DX: Z11.4 Encounter for screening for human immunodeficiency virus [HIV] (principal); D64.9 Anemia, unspecified; D86.0 Sarcoidosis of lung; N18.6 End stage renal disease; R01.1 Cardiac murmur, unspecified; R21 Rash and other nonspecific skin eruption; R53.1 Weakness
CPT/HCPCS: 36415; 72070; 72110; 80061; 82306; 82607; 82728; 83036; 83735; 84100; 84443; 85025; 85652; 86140; 86803; 87389

== ENCOUNTER → 2022-03-14 15:58 | Outpatient (REF) | payer MEDICAID, SELFPAY ==
--- NOTE | 2022-03-14 14:00 | CA_ITS ---
Transthoracic Echocardiogram Patient (Last, First, Middle): Ramón Emmanuel, Gender: Male Date of : 1970 Age: 51 Procedure Date: 03/14/2022 Procedure Type: Transthoracic Echocardiogram Location: OP Height: 180.34 cm Weight: 84.82 kg BSA: 2.05 m2 Heart Rate: bpm BP: 85 / 40 mmHg Dermatologist And Dermatopathologist: KERMIT Referring MD: Krystyna Beal MD [employer] [place] [employer] Manager: Kareem Talley MD Symptoms: CARDIAC MURMUR Study Quality: Adequate ECG Rhythm: Sinus Conclusions: - 1. Normal LV systolic function with impaired relaxation filling pattern 2. Mild aortic stenosis 3. Normal RV systolic pressure 4. No gross pericardial effusion Findings Left Ventricle Normal left ventricular cavity size. There is normal left ventricular wall thickness. The left ventricular systolic function is low normal. The visually estimated ejection fraction is between 50-55%. Spectral Doppler is indicative of an impaired relaxation filling pattern. E/E prime ratio is between 8 and 15 consistent with indeterminate filling pressures. Wall Motion Rest Echo Findings The basal inferior segment is akinetic. All other scored wall segments showed normal motion. Right Ventricle Normal right ventricular cavity size and systolic function. Atria The left atrium is normal in size. Interatrial shunt cannot be excluded. The right atrium is normal in size. Aortic Valve The aortic valve was not well visualized. There is mild calcification of the aortic valve. There is mild aortic valve stenosis. The peak aortic gradient is 26 mmHg.The mean gradient is 16 mmHg. The aortic valve area is 1.62 cm2. There is no aortic valve regurgitation. Mitral Valve There is mild anterior and posterior mitral leaflet thickening. There is moderate mitral annular calcification. There is trace mitral valve regurgitation. There is no mitral valve stenosis. Pulmonic Valve The pulmonic valve was not well visualized. Tricuspid Valve Likely normal tricuspid valve structure and function. There is trace tricuspid valve regurgitation. The right ventricular systolic pressure is normal. The right ventricular systolic pressure is 25 mmHg. Normal right atrial pressure. There is no evidence of pulmonary hypertension. Great Vessels All visible segments of the aorta are normal in size. The pulmonary artery was not well visualized. Venous The inferior vena cava is normal in size and collapses greater than 50% with inspiration. Pericardium/Pleural There is no evidence of pericardial effusion. Prior Study Comparison No prior study available for comparison. Measurements 2D Linear Measurements IVSd: 1.13 0.6-0.9/0.6-1.0 cm LVIDd: 4.37 3.9-5.3/4.2-5.9 cm LVIDd Index: 2.13 2.4-3.2/2.2-3.1 cm/m2 LVIDs: 2.73 2.0-3.6 cm LVPWd: 1.03 0.7-1.1 cm LA Diam: 3.40 2.7-3.8/3.0-4.0 cm LAIDs Index: 1.66 1.5-2.3 cm/m2 LV Mass: 202.79 67-162/88-224 g LV Mass Index: 98.92 43-95/49-115 g/m2 LVOT Diam: 2.20 3.0+(-)1.3 cm 2D Systolic Function EF 4C: 48.10 >55% EF 2C: 54.50 >55% EF BiP: 51.10 >55% Mitral Valve MV Pk E: 0.71 MV PK A: 1.09 MV Decel Time: 199.00 E/A: 0.70 E'Lateral: 8.05 E'Medial: 5.87 E/E' Med: 12.10 E/E' Lat: 8.90 PHT: 58.00 MVA PHT: 3.79 Decel Zavala: 3.58 Aortic Valve AoV Pk Miguel: 2.56 AoV Mn Miguel: 1.85 AoV VTI: 0.43 AoV Pk Grad: 26.00 Aov Mn Grad: 16.00 NERIS Cont.VTI: 1.62 LVOT LVOT Pk Miguel: 0.97 LVOT Mn Miguel: 0.69 LVOT VTI: 0.18 LVOT Pk Grad: 4.00 LVOT Mn Grad: 2.00 LVOT Diam: 2.20 LVOT Area: 3.80 Diastolic Function MV Pk E: 0.71 MV Pk A: 1.09 E/A: 0.70 E'Medial: 5.87 E/E' Med: 12.10 E' Laterial: 8.05 E/E' Lat: 8.90 Right Ventricle TAPSE (mm): 2.26 TVS' Miguel: 10.80 Tricuspid Valve TR Pk Miguel: 2.08 TR Pk Grad: 17.00 RA Press: 8.00 RVSP: 25.00 Great Vessels Aorta Sinus of Valsalva: 3.39 2.0-3.[address] Ridge: 2.61 1.7-3.4 cm Ao Asc: 3.30 2.1-3.4 cm Updated in Other Vendor System with Status of Final Kareem Talley MD electronically signed on 03/14/2022 6:01:18 PM with status of Final
== END ==
LOC: HO.CARD 15:58
PROVIDERS: Visit Provider Internal Medicine
DX: R01.1 Cardiac murmur, unspecified (principal)
CPT/HCPCS: 93306